=== PATIENT | female | born 1935 ===

== ENCOUNTER 2018-01-02 07:13 | Inpatient (IN) | payer OTHER, MEDICARE ==
[~2018-01-02] VITALS: Ht 167.6 cm; Wt 60.3 kg
[2018-01-02 08:02] LABS: ABSOLUTE BASOPHIL COUNT 0.1 /CUMM (0.0-0.2); ABSOLUTE EOSINOPHIL COUNT 0.1 /CUMM (0.0-0.7); ABSOLUTE GRANULOCYTE CT 18.5 /CUMM (1.4-6.5); ABSOLUTE LYMPH COUNT 0.7 /CUMM (1.2-3.4); BASOPHIL % 0.3 % (0.0-2.0); EOSINOPHIL % 0.3 % (0-5); GRANULOCYTE % 91.3 % (42.2-75.2); HEMATOCRIT 38.5 % (37-47); MEAN CORPUSCULAR HGB CONC 33.5 G/DL (33.0-37.0); MEAN CORPUSCULAR VOLUME 80.6 FL (81.0-99.0); MEAN PLATELET VOLUME 7.8 FL (7.4-10.4); PLATELET COUNT 616 /CUMM (130-400); RED BLOOD CELL CT 4.77 /CUMM (4.20-5.40); WHITE BLOOD CELL COUNT 20.3 /CUMM (4.8-10.8)
[2018-01-02 08:22] LABS: PT 30.8 SEC (9.4-12.5)
--- NOTE | 2018-01-02 09:10 | ED MVC/FALL/TRAUMA COMPLAINT ---
History of Present Illness General Chief Complaint: Fall Stated Complaint: BIBA FOR FALL THIS AM Source: patient, family, old records, EMS, Epic Exam Limitations: poor historian Vital Signs & Intake/Output Vital Signs & Intake/Output Vital Signs Date Time Temp Pulse Resp B/P B/P Pulse O2 O2 Flow FiO2 Mean Ox Delivery Rate 01/02 1506 97.9 88 18 134/86 97 Room Air Room Air 01/02 1113 109 18 96 Room Air 01/02 0822 96 Room Air 01/02 0720 109 18 179/91 97 Room Air Allergies Coded Allergies: No Known Allergies (01/02/18) Reconcile Medications Atorvastatin Calcium (Lipitor) 40 MG TABLET 1 TAB PO DAILY CHOLESTEROL ( Reported) Calcium Carbonate (Calcium) 500 MG CALCIUM (1,250 MG) TABLET 1 TAB PO BID SUPPLEMENT (Reported) Carvedilol 6.25 MG TABLET 1 TAB PO BID HEART/BP (Reported) Cholecalciferol (Vitamin D3) (Vitamin D) 1,000 UNIT TABLET 1 TAB PO DAILY SUPPLEMENT (Reported) Omeprazole 20 MG CAPSULE.DR 1 CAP PO DAILY GI (Reported) Prednisone 1 MG TABLET 9 MG PO DAILY STEROID (Reported) Sennosides/Docusate Sodium (Senna S Tablet) 8.6 MG-50 MG TABLET 1 TAB PO QHS GI (Reported) Sertraline HCl (Zoloft) 25 MG TABLET 1 TAB PO DAILY MENTAL HEALTH (Reported) Warfarin Sodium (Coumadin) 1 MG TABLET 1.5 TAB PO DAILY BLOOD THINNER ( Reported) Triage Note: PT BIBA FROM [facility] S/P UNWITNESSED FALL. PT REPORTS SHE FELL IN BATHROOM AND WAS ON FLOOR FOR UNKNOWN AMOUNT OF TIME. RIGHT UPPER EXT DEFORMITY NOTED WITH PAIN. ECCHYMOTIC AREAS NOTED TO LLE AND LUE, UNKNOWN MECHANISM. LEFT ORBIT ECCHYMOTIC AND SWOLLEN, PT STATES SHE DOES NOT KNOW HOW/WHEN INJURY OF ORBIT OCCURED, "IT MUST HAVE JUST HAPPENED". PT TAKES COUMADIN FOR AFIB. AOX2, DOES NOT RECALL DATE. Triage Nurses Notes Reviewed? yes Onset: Morning Duration: hour(s):, constant, continues in ED Timing: recent history Severity: moderate, severe Injuries/Fall Location: face, upper extremity, lower extremity Loss of Consciousness: no loss of consciousness Modifying Factors: Worsens With: movement, palpation. LMP (ages 10-50): post menopausal : No Patient currently breastfeeds: No HPI: Sometime during the night prior to admission patient lost her balance in the bathroom and fell forward into the toilet area. She does not recall losing consciousness but could not get up on her own. She complains of severe right arm pain limited range of motion. There has been no fever chills nausea vomiting diarrhea abdominal pain chest pain shortness breath headache dysuria rash bleeding. Patient walks with the assistance of a walker. Past History Travel History Traveled to [place] past 21 day No Medical History Any Pertinent Medical History? see below for history Neurological: CVA, AMS GIANT CELL ARTERITIS Cardiovascular: AFIB, CAD, hypertension, STEMI Surgical History Surgical History: non-contributory Psychosocial History Tobacco Use: Cognitive Impairment Family History Hx Contributory? No Review of Systems Review of Systems Constitutional: Reports: no symptoms. Eyes: Reports: no symptoms. Ears, Nose, Throat, Mouth: Reports: no symptoms. Respiratory: Reports: no symptoms. Cardiovascular: Reports: no symptoms. Gastrointestinal/Abdominal: Reports: no symptoms. Genitourinary: Reports: no symptoms. Musculoskeletal: Reports: see HPI, joint pain. Skin: Reports: no symptoms. Neurological/Psychological: Reports: no symptoms. All Other Systems: Reviewed and Negative Physical Exam Physical Exam General Appearance: well developed/nourished, alert, awake, anxious, moderate distress Head: evidence of injury, contusions, ecchymosis (left periorbital), swelling, tenderness Eyes: Bilateral: normal appearance, PERRL, EOMI, normal inspection. Ears, Nose, Throat, Mouth: hearing grossly normal, moist mucous membrane Neck: normal inspection, supple, full range of motion, normal alignment Respiratory: normal breath sounds, chest non-tender, no respiratory distress, quiet respiration, lungs clear Cardiovascular: normal peripheral pulses, tachycardia, irregularly irregular, norml femoral pulses equa Peripheral Pulses: 4+ carotid (R), 4+ carotid (L), 2+ radial (R), 2+ radial (L) Gastrointestinal: normal bowel sounds, soft, non-tender, no organomegaly Back: normal inspection Extremities: evidence of injury, bony-point tenderness, injury present, limited range of motion, pain with movement, tenderness, ecchymosis left elbow left knee and right shoulder abrasion right knee Neurologic/Psych: no motor/sensory deficits, awake, alert, normal mood/affect, 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 Yes No ASA d/t Pharmacological CI CVA/TIA Diagnosis No Sepsis Present: No Sepsis Focused Exam Completed? No Progress Differential Diagnosis: ext injury, ICH Plan of Care: Orders Procedure Date/time Status Regular Diet 01/02 D Active OXYGEN SETUP (GEN) 01/02 1606 Active Saline Lock 01/02 1606 Active Admit to inpatient 01/02 1606 Active Vital Signs 01/02 1606 Active Activity/Ambulation 01/02 1606 Active Code Status 01/02 1606 Active PT Evaluate & Treat 01/02 1118 Active Durable Medical Equipment 01/02 0851 Active URINALYSIS 01/02 0725 Complete TROPONIN LEVEL 01/02 0725 Complete PROTHROMBIN TIME 01/02 0725 Complete COMPREHENSIVE METABOLIC PANEL 01/02 0725 Complete CREATINE PHOSPHOKINASE 01/02 0725 Complete CBC WITHOUT DIFFERENTIAL 01/02 0725 Complete EKG 01/02 0725 Active Theraputic Activities 15 Min 01/02 UNK Complete Neuromuscular Re-Ed 15Min Ea 01/02 UNK Complete MOBILITY GOAL STATUS 01/02 UNK Complete MOBILITY CURRENT STATUS 01/02 UNK Complete PT EVAL MOD COMPLEX 30 MIN 01/02 UNK Complete Laboratory Tests 01/02/18 0913: Anion Gap 11, Estimated GFR > 60, BUN/Creatinine Ratio 26.0 H, Glucose 127 H, Calcium 9.1, Total Bilirubin 0.7, AST 19, ALT 36, Alkaline Phosphatase 91, Creatine Kinase 90, Troponin I 0.05, Total Protein 6.0 L, Albumin 3.4 L, Globulin 2.6, Albumin/Globulin Ratio 1.3 01/02/18 0755: PT 30.8 H, INR 2.80 H, CBC w Diff MAN DIFF ORDERED, RBC 4.77, MCV 80.6 L, MCH 27.0, MCHC 33.5, RDW 16.0 H, MPV 7.8, Gran % 91.3 H, Lymphocytes % 3.3 L, Monocytes % 4.8, Eosinophils % 0.3, Basophils % 0.3, Absolute Granulocytes 18.5 H, Segmented Neutrophils 83 H, Band Neutrophils 1, Absolute Lymphocytes 0.7 L, Lymphocytes 6 L, Monocytes 10 H, Absolute Monocytes 1.0 H, Absolute Eosinophils 0.1, Absolute Basophils 0.1, Platelet Estimate INCREASED, Normocytic RBCs VERIFIED, Normochromic RBCs VERIFIED 01/02/18 0751: Urinalysis LIGHT H, Urine Color YEL, Urine Clarity CLEAR, Urine pH 7.0, Ur Specific [place] 1.020, Urine Protein TRACE H, Urine Ketones NEG, Urine Nitrite NEG, Urine Bilirubin NEG, Urine Urobilinogen 0.2, Ur Leukocyte Esterase NEG, Ur Microscopic SEDIMENT EXAMINED, Urine RBC RARE, Urine WBC 3-5 H, Ur Epithelial Cells MOD H, Urine Bacteria MOD H, Urine Mucus FEW, Urine Hemoglobin NEG, Urine Glucose NEG 01/02/18 0732: Creatine Kinase Cancelled Diagnostic Imaging: Viewed by Me: Radiology Read, CT Scan. Discussed w/RAD: Radiology Read, CT Scan. Radiology Impression: 1. There are no acute bleeds or territorial infarcts. 2. There are no acute osseous findings. There is soft tissue swelling over the left malar and left supraorbital regions. 3. There is diffuse volume loss and there are chronic microvascular ischemic changes and lacunar infarcts. 4. There are severe degenerative changes of the temporomandibular joints. CXR Impression: Right humerus: A spiral fracture involving the proximal shaft of the right humerus. There is significant displacement and overriding at the fracture site. Displacement is posterior. The glenohumeral articulation is normal. The distance of overriding is approximately 9 cm. Left elbow: No evidence of fracture, dislocation, or joint effusion. CHEST: The heart is enlarged. There is moderate calcification and uncoiling of the thoracic aorta. Lungs are clear. There is no pneumothorax or obvious hemothorax. The visualized bony thorax is normal showing no fractures. Initial ED EKG: AFIB, no ST T wave changes Rhythm Strip: atrial fibrillation Departure Departure Disposition: STILL A PATIENT Condition: Fair Clinical Impression Primary Impression: Right humeral fracture Secondary Impressions: Atrial fibrillation, Fall due to stumbling, Leukocytosis Referrals: Patient Has No Primary Care Dr (PCP/Family) Departure Forms: Customer Survey General Discharge Information Admission Note Spoke With: Krissy Smith MD Documentation of Exam: Documentation of any treatments & extenuating circumstances including Concerns Regarding Discharge (functional status, medication knowledge or non-compliance, living conditions, etc.) that warrant an admission rather than observation: Physical therapy analgesia medication adjustment serial lab exam continuing care discharge planning ensure safety. Procedures Splinting Location: right humerus Manual Alignment Performed: No Hand-Made Type: orthoglass Splint: sugar-tong Splint Applied By: splint applied by me Pre-Proc Neuro Vasc Exam: normal Post-Proc Neuro Vasc Exam: normal
--- NOTE | 2018-01-02 09:21 | CT SCAN REPORT ---
EXAMINATION: CT HEAD WITHOUT CONTRAST CT FACIAL BONES WITHOUT CONTRAST CLINICAL INFORMATION: Fall, left periorbital ecchymosis. Assess for fracture or intracranial hemorrhage. COMPARISON: None. TECHNIQUE: Multidetector CT imaging of the head and facial bones was performed without the use of intravenous contrast. Coronal and sagittal reformatted images were generated at the technologist workstation. DLP: 1484.48 mGy-cm. FINDINGS: CT head: There is no evidence of acute intracranial hemorrhage or territorial infarction. No abnormal mass-effect or midline shift is seen. Nevarez to white matter differentiation is well preserved. No extra-axial fluid collections are identified. The ventricles and sulci are commensurately prominent consistent with moderate diffuse volume loss. There are relatively extensive areas of low attenuation in the periventricular and subcortical white matter, consistent with chronic microvascular ischemic changes. There appear to be small lacunar infarcts in the cerebellar hemispheres. There are atheromatous calcifications of the cavernous internal carotid arteries bilaterally. There have been bilateral lens extractions. There is soft tissue swelling over the left malar and left periorbital regions. There are severe degenerative changes of the temporomandibular joints bilaterally. There are no acute osseous findings. The mastoid air cells and visualized portions of the paranasal sinuses are well-aerated. CT facial bones: There is no acute maxillofacial fracture. The mandible is intact. There are severe degenerative changes of the bilateral temporomandibular joints. The pterygoid plates, zygomatic arches and lamina papyracea are intact. The bony orbital rims are intact. The nasal bones are intact. There is moderate soft tissue swelling over the left malar and left supraorbital regions. There is mild mucoperiosteal thickening in the bilateral maxillary sinuses. No air-fluid levels are seen. There is rightward deviation of the nasal septum with a bony nasal septal spur on the right. The ostiomeatal complexes are clear. The ethmoid roofs are symmetric. The carotid canals are normally covered by bone. The patient is edentulous in the maxilla. There are periapical lucencies around the roots of multiple teeth in the anterior mandible. The mastoid air cells and visualized middle ear cavities are well-aerated. There have been bilateral lens extractions. The intraorbital contents are otherwise unremarkable. IMPRESSION: 1. There are no acute bleeds or territorial infarcts. 2. There are no acute osseous findings. There is soft tissue swelling over the left malar and left supraorbital regions. 3. There is diffuse volume loss and there are chronic microvascular ischemic changes and lacunar infarcts. 4. There are severe degenerative changes of the temporomandibular joints.
--- NOTE | 2018-01-02 09:22 | RADIOLOGY REPORT ---
EXAMINATION: XR KNEE, RIGHT CLINICAL INFORMATION: Right knee pain COMPARISON: None TECHNIQUE: Four views of the right knee. FINDINGS: Normal alignment. No fracture. No joint effusion. Mild medial compartment osteoarthritis with marginal osteophytes and slight joint space narrowing. Prominent vascular calcifications. IMPRESSION: No fracture. Mild medial compartment osteoarthritis.
--- NOTE | 2018-01-02 09:28 | RADIOLOGY REPORT ---
EXAMINATION: XRY-CHEST XRAY, SINGLE VIEW, XRY-HUMERUS, RIGHT, XRY-ELBOW 3 OR MORE VIEWS, L CLINICAL INFORMATION: 82-year-old female experiencing trauma. COMPARISON: None. TECHNIQUE: 3 views of the right humerus, 4 views of the left elbow, and AP supine view of the chest. FINDINGS: Right humerus: A spiral fracture involving the proximal shaft of the right humerus. There is significant displacement and overriding at the fracture site. Displacement is posterior. The glenohumeral articulation is normal. The distance of overriding is approximately 9 cm. Left elbow: No evidence of fracture, dislocation, or joint effusion. CHEST: The heart is enlarged. There is moderate calcification and uncoiling of the thoracic aorta. Lungs are clear. There is no pneumothorax or obvious hemothorax. The visualized bony thorax is normal showing no fractures. IMPRESSION: Displaced overriding fracture of the right humerus.
--- NOTE | 2018-01-02 11:26 | Cons- Orthopedic ---
General Information and HPI Consulting Request Date of Consult: 01/02/18 Requested By: Dr. Jennings History of Present Illness: 82 yr old female who had syncopal episode. C/O right shoulder pain. x-rays were taken in ER which show a proximal humeral shaft fracture. She was placed into a co-aptation splint and sling per Dr griffiths recommendation to the ER physician. The ER physician states that right upper extremity in N/V intact with good radial pulse and sensation to light touch. She will be admitted to medicine for syncope. Will remain in splint and sling and f/u in our office in 1 week for repeat films of proximal humerus. NWB right upper extremity. Discussed with Dr Lugo and Dr Lugo discussed this with Dr Jennings. Allergies/Medications Allergies: Coded Allergies: No Known Allergies (01/02/18) Past History Medical History Neurological: CVA, AMS GIANT CELL ARTERITIS Cardiovascular: AFIB, CAD, hypertension, STEMI Surgical History Pertinent Surgical History: non-contributory Review of Systems Review of Systems: see chart Exam & Diagnostic Data Vital Signs and I&O Vital Signs Date Time Temp Pulse Resp B/P B/P Pulse O2 O2 Flow FiO2 Mean Ox Delivery Rate 01/02 1113 109 18 96 Room Air 01/02 0822 96 Room Air 01/02 0720 109 18 179/91 97 Room Air Intake & Output 01/02 1600 01/02 0800 01/02 0000 01/01 1600 01/01 0800 01/01 0000 Intake Total Output Total Balance Patient 125 lb Weight Weight Reported by Patient Measurement Method Assessment/Plan Assessment/Plan Right proximal humeral shaft fracture - F/U 1 week in our office for repeat films of right proximal humerus [phone] - sling and co-aptation splint of right upper extremity - no motion of right upper extremity - NWB right upper extremity - ice to right shoulder area and pain meds for pain control - Treatment plan discussed and agreed by Dr Lugo Consult Acknowledgment - Thank you for your consult request.
[2018-01-02] MEDS ORDERED: LIPITOR40 M1 PO (16:06)
[2018-01-02] MEDS ORDERED: OMEPRAZOLE20 M2 PO (16:07)
[2018-01-02] MEDS ORDERED: SENNA S TABLET1 EACH PO (16:07)
[2018-01-02] MEDS ORDERED: CARVEDILOL6.25 M1 PO (16:07)
[2018-01-02] MEDS ORDERED: COUMADIN1 M1 PO (16:08)
[2018-01-02] MEDS ORDERED: ZOLOFT25 M1 PO (16:08)
[2018-01-02] MEDS ORDERED: PREDNISONE1 MG PO (16:09)
[2018-01-02] MEDS ORDERED: CALCIUM500 M1 PO (16:10)
[2018-01-02] MEDS ORDERED: VITAMIN D1000 UNIT PO (16:10)
--- NOTE | 2018-01-02 16:17 | History & Physical ---
Rohit LEE,Jonnyyanna 01/02/18 1617: General Information and [facility] MD Statement: I have seen and personally examined CORINA SANCHEZ and documented this H&P. The patient is a 82 year old F who presented with a patient stated chief complaint of [fall and syncope]. 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 Pt was subsequently d/c from [facility] to [facility] and then to [facility] for rehab services. Per notes she continues to have residual deficits and transient episodes of confusion and slurring of speech since CVA. She was brought to for CC of unwitnessed fall. Unfortunately pt is a poor historian and while sometimes provides plausible answers is not entirely reliable (did not know where she lived). Per her, she was trying to go to bathroom last night and had socks on and slipped and fell. She hit the commode and was down for several hours. But upon speaking to daughter, Renetta, pt was down for about 45 min before any of nursing staff found her down. Pt denies any LOC or head strike but has contusions on her face suggesting otherwise. Pt denies SOB, CP, lowe, nausea, vomiting, vision change, dizziness, change in appetite, difficulty urinating or diarrhea. She complains of r. arm and some soreness in her legs. Renetta is MPOA and she states that her mother is at her baseline mental status. I attempted to call [facility] but nobody was available to answer. Allergies/Medications Allergies: Coded Allergies: No Known Allergies (01/02/18) Home Med list Atorvastatin Calcium (Lipitor) 40 MG TABLET 1 TAB PO DAILY CHOLESTEROL ( Reported) Calcium Carbonate (Calcium) 500 MG CALCIUM (1,250 MG) TABLET 1 TAB PO BID SUPPLEMENT (Reported) Carvedilol 6.25 MG TABLET 1 TAB PO BID HEART/BP (Reported) Cholecalciferol (Vitamin D3) (Vitamin D) 1,000 UNIT TABLET 1 TAB PO DAILY SUPPLEMENT (Reported) Omeprazole 20 MG CAPSULE. 1 CAP PO DAILY GI (Reported) Prednisone 1 MG TABLET 9 MG PO DAILY STEROID (Reported) Sennosides/Docusate Sodium (Senna S Tablet) 8.6 MG-50 MG TABLET 1 TAB PO QHS GI (Reported) Sertraline HCl (Zoloft) 25 MG TABLET 1 TAB PO DAILY MENTAL HEALTH (Reported) Warfarin Sodium (Coumadin) 1 MG TABLET 1.5 TAB PO DAILY BLOOD THINNER ( Reported) Past History Travel History Traveled to [place] past 21 day No Medical History Neurological: CVA, AMS GIANT CELL ARTERITIS Cardiovascular: AFIB, CAD, hypertension, STEMI Surgical History Surgical History: non-contributory Review of Systems Review of Systems Constitutional: Reports: see HPI. Exam & Diagnostic Data Last 24 Hrs of Vital Signs/I&O Vital Signs Date Time Temp Pulse Resp B/P B/P Pulse O2 O2 Flow FiO2 Mean Ox Delivery Rate 01/02 1506 97.9 88 18 134/86 97 Room Air Room Air 01/02 1113 109 18 96 Room Air 01/02 0822 96 Room Air 01/02 0720 109 18 179/91 97 Room Air Intake & Output 01/02 1600 01/02 0800 01/02 0000 Intake Total 120 Output Total 200 Balance -80 Intake, Oral 120 Output, Urine 200 Patient 56.699 kg Weight Weight Reported by Patient Measurement Method Physical Exam General Appearance Alert, No Acute Distress Skin has contusion around l. eye. no pain to palpation. L. lateral thigh has a large bruise. R. arm in cast cannot assess HEENT bruise around l. eye Neck Supple, No LAD Cardiovascular irreg irregular Lungs Normal Air Movement Abdomen Soft, No Tenderness Neurological Normal Speech, Sensation Intact, Cranial Nerves 3-12 NL Extremities r. arm in cast. it is warm and well perfused. good cap refill. pulses in tact but irregular. pt has sensation in tact and is able to move all digits wtihout pain. the arm is in a cast and sling so unable to assess beyond wrist. Last 24 Hrs of Labs/Ashish: Laboratory Tests 01/02/18 0913: Anion Gap 11, Estimated GFR > 60, BUN/Creatinine Ratio 26.0 H, Glucose 127 H, Calcium 9.1, Total Bilirubin 0.7, AST 19, ALT 36, Alkaline Phosphatase 91, Creatine Kinase 90, Troponin I 0.05, Total Protein 6.0 L, Albumin 3.4 L, Globulin 2.6, Albumin/Globulin Ratio 1.3 01/02/18 0755: PT 30.8 H, INR 2.80 H, CBC w Diff MAN DIFF ORDERED, RBC 4.77, MCV 80.6 L, MCH 27.0, MCHC 33.5, RDW 16.0 H, MPV 7.8, Gran % 91.3 H, Lymphocytes % 3.3 L, Monocytes % 4.8, Eosinophils % 0.3, Basophils % 0.3, Absolute Granulocytes 18.5 H, Segmented Neutrophils 83 H, Band Neutrophils 1, Absolute Lymphocytes 0.7 L, Lymphocytes 6 L, Monocytes 10 H, Absolute Monocytes 1.0 H, Absolute Eosinophils 0.1, Absolute Basophils 0.1, Platelet Estimate INCREASED, Normocytic RBCs VERIFIED, Normochromic RBCs VERIFIED 01/02/18 0751: Urinalysis LIGHT H, Urine Color YEL, Urine Clarity CLEAR, Urine pH 7.0, Ur Specific [place] 1.020, Urine Protein TRACE H, Urine Ketones NEG, Urine Nitrite NEG, Urine Bilirubin NEG, Urine Urobilinogen 0.2, Ur Leukocyte Esterase NEG, Ur Microscopic SEDIMENT EXAMINED, Urine RBC RARE, Urine WBC 3-5 H, Ur Epithelial Cells MOD H, Urine Bacteria MOD H, Urine Mucus FEW, Urine Hemoglobin NEG, Urine Glucose NEG 01/02/18 0732: Creatine Kinase Cancelled Assessment/Plan Assessment: ASSESSMENT: This is a 82 yo female with very complex medical history including CAD S/P mid LAD PCI on 02/2017, chronic afib on coumadin, Giant cell arteritis ( temporal artery biopsy was negative but ESR elevated, and empirically treated due to improvement on steroids) on chronic steroid taper with 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 vertebral artery dissection who comes in for CC of unwitnessed mechanical fall. In ED pt found to have over riding fracture of r. humerus which was placed in splint and sling. CT head did not show evidence of acute bleed. PLAN: 1. fall w/ R. humeral fracture w/ head strike: Pt assessed by ortho PA and placed in splint and sling. CT head shows no evidence of bleed. * Plan is to follow up outpatient in one week with orthopedics for follow up * pain mgmt * pt * ot * neuro check q 2 2. PAF: Per [facility] notes it was unsure if her CVA was secondary to stopping coumadin or due to GCA. Today INR 2.8. If she has bleed will reverse appropriately. No vit K administered at this time. * Check INR * Dose tomorrow 3. Leukocytosis: WBC 20.3.Pt afebrile with no evidence of infection. Could also be due to steroids. Likely reactive but will do work up. * UA * UCX * BCX 4. Thrombocytosis: Plt 616. Don't have any comparison. Will con't monitor.? acute phase reactant * Con't monitor 5. HX GCA/ Bilat cerebellar CVA and vertebral dissection: * Con't Steroid taper per [facility] rheumatology 6. CAD * Atorvastatin * Carvedilol 7. Depression * Continue Zoloft 25mg qDaily 8. Con't other meds * Vit D 1000u qd * Calcium 500mg po BID * PPI DNR Reg diet Coumadin ppx As Ranked By This Provider Problem List: 1. Right humeral fracture 2. Leukocytosis 3. Atrial fibrillation Core Measures/Misc (06/02) Acute Coronary Syndrome ACS Diagnosis: No Congestive Heart Failure Congestive Heart Failure Diagnosis No Cerebrovascular Accident CVA/TIA Diagnosis: No VTE (View Protocol) VTE Risk Factors Acute Medical Illness No Mechanical VTE Prophylaxis d/t N/A MechProphylax Ordered No VTE Pharm Prophylaxis d/t NA PharmProphylax ordered Sepsis (View protocol) Sepsis Present: No KiaraaSmeer walsh 01/02/18 1717: Attending MD Review Statement Attending Statement Attending MD Statement: examined this patient, discuss w/resident/PA/MEASUREMENT ANALYST, agreed w/resident/PA/MEASUREMENT ANALYST, discussed with family, reviewed EMR data (avail), discussed with nursing, discussed with case mgmt, reviewed images, amended to note Attending Assessment/Plan: Patient admitted to telemetry for fall with syncope. Patient has suffered fracture of right humerus. Orthopedics consutled in ER and recommend conservative management. Head CT negative for intracranial bleed. Patient on coumaidn with therpautic INR. Cardiology consult. Serial cardiac enzymes. Carotid USG. Frequent neurochecks and fall precautions. PT consult. Confirm home meds. gi/dvt prophyalxis.
[2018-01-02 22:23] VITALS: BP 144/98
[2018-01-03 06:33] VITALS: BP 152/78
[2018-01-03 07:47] LABS: ABSOLUTE BASOPHIL COUNT 0 /CUMM (0.0-0.2); ABSOLUTE EOSINOPHIL COUNT 0 /CUMM (0.0-0.7); BASOPHIL % 0.2 % (0.0-2.0); WHITE BLOOD CELL COUNT 11.4 /CUMM (4.8-10.8)
[2018-01-03 08:14] LABS: ABSOLUTE GRANULOCYTE CT 9.7 /CUMM (1.4-6.5); ABSOLUTE LYMPH COUNT 0.6 /CUMM (1.2-3.4); EOSINOPHIL % 0.2 % (0-5); MEAN CORPUSCULAR HGB 26.8 PG (27.0-31.0); MEAN CORPUSCULAR VOLUME 81.3 FL (81.0-99.0); MEAN PLATELET VOLUME 7.8 FL (7.4-10.4); PLATELET COUNT 453 /CUMM (130-400); PT 38.5 SEC (9.4-12.5); RBC DISTRIBUTION WIDTH 16.2 % (11.5-14.5); RED BLOOD CELL CT 4.08 /CUMM (4.20-5.40)
[2018-01-03 08:18] LABS: HEMATOCRIT 33.2 % (37-47)
--- NOTE | 2018-01-03 08:33 | PN- Student ---
Subjective Subjective: Bridger is an 82 year old female with history of HTN, STEMI, A.fib (on coumadin), CAD S/P mid LAD PCI February 2017, CVA, giant cell arteritis, vertebral dissection who presented to the ED following an unwittnessed fall at her assisted living facility ([facility]) after which she stayed on the floor for an unknown period of time before an aid found her and called an ambulence. The patient recalls rushing to the bathroom and slipping due to her socks, and falling near the toilet. She remembers falling on her arm but does not recall hitting her head despite a left orbital bruise, though she denies loss of consciousness. She experienced unfocused vision following the fall. She admits to feeling nauseous after the fall, but denies vomiting. Pt denies feeling any pain while waiting for the aid. She does not use a cane. Today, patient is feeling "shaken up" from her fall, but otherwise feels well. She has pain (4/10) on exertion of her right arm. Her unfocused vision symptom has been resolved. She denies headache, but there is TTP around her left orbit. Pt denies chest pain abdominal pain, and pain with urination. Shes states that she feels emotionally well today. Social history: patient previously lived with her in [place], but moved to [facility] for assisted living since he . Has "mixed feelings" about the assisted living home. Her daughter, Renetta, is her MPOA. Objective Objective: Vitals 6:33am T:98 P:108 RR:18 BP:152/78 (systolic fluctuated between 118 -152 since ED arrival) PO2:95% BP 110/68 @ 4:12pm Labs show leukopenia and thrombocytopenia, increased PT & INR (3.94) per Telemetry, pt was in A.fib throughout night with HR 95-126. no events Physical Exam (limited by broken humerus in sling): General appearance: awake and alert, in some discomfort HEENT: PERRLA, EOMI MSK: TTP left orbit Skin: echymoses surrouning left eye Imaging: Head CT: no infarction or hemorrhage, soft tissue swelling over left malar and left supraorbital regions, diffuse volume loss and chronic microvascular ischemic changes and lacunar infarcts Knee XR: no fracture. mild medial compartment osteoarthritis Chest XR: spiral fracture of proximal shaft L. humerus with posterior displacement. enlarged heart. moderate calcification and uncoiling of thoracic aorta. Results Results: Laboratory Tests 01/03/18 0650: Anion Gap 11, Estimated GFR > 60, BUN/Creatinine Ratio 25.0, PT 38.5 H, INR 3.49 H, CBC w Diff Pending, WBC Pending, RBC Pending, Hgb Pending, Hct Pending, MCV Pending, MCH Pending, MCHC Pending, RDW Pending, Plt Count Pending, MPV Pending, Gran % Pending, Lymphocytes % Pending, Monocytes % Pending, Eosinophils % Pending, Basophils % Pending, Absolute Granulocytes Pending, Absolute Lymphocytes Pending, Absolute Monocytes Pending, Absolute Eosinophils Pending, Absolute Basophils Pending 01/02/18 0913: Anion Gap 11, Estimated GFR > 60, BUN/Creatinine Ratio 26.0 H, Glucose 127 H, Calcium 9.1, Total Bilirubin 0.7, AST 19, ALT 36, Alkaline Phosphatase 91, Creatine Kinase 90, Troponin I 0.05, Total Protein 6.0 L, Albumin 3.4 L, Globulin 2.6, Albumin/Globulin Ratio 1.3 01/02/18 0755: PT 30.8 H, INR 2.80 H, CBC w Diff MAN DIFF ORDERED, RBC 4.77, MCV 80.6 L, MCH 27.0, MCHC 33.5, RDW 16.0 H, MPV 7.8, Gran % 91.3 H, Lymphocytes % 3.3 L, Monocytes % 4.8, Eosinophils % 0.3, Basophils % 0.3, Absolute Granulocytes 18.5 H, Segmented Neutrophils 83 H, Band Neutrophils 1, Absolute Lymphocytes 0.7 L, Lymphocytes 6 L, Monocytes 10 H, Absolute Monocytes 1.0 H, Absolute Eosinophils 0.1, Absolute Basophils 0.1, Platelet Estimate INCREASED, Normocytic RBCs VERIFIED, Normochromic RBCs VERIFIED 01/02/18 0751: Urinalysis LIGHT H, Urine Color YEL, Urine Clarity CLEAR, Urine pH 7.0, Ur Specific [place] 1.020, Urine Protein TRACE H, Urine Ketones NEG, Urine Nitrite NEG, Urine Bilirubin NEG, Urine Urobilinogen 0.2, Ur Leukocyte Esterase NEG, Ur Microscopic SEDIMENT EXAMINED, Urine RBC RARE, Urine WBC 3-5 H, Ur Epithelial Cells MOD H, Urine Bacteria MOD H, Urine Mucus FEW, Urine Hemoglobin NEG, Urine Glucose NEG 01/02/18 0732: Creatine Kinase Cancelled Microbiology 01/02 1915 BLOOD: Blood Culture - RECD 01/02 1907 BLOOD: Blood Culture - RECD Assessment/Plan Assessment: 82 year old female pt on coumadin for a. fib and CVA history presenting with an unwitnessed fall at her assisted living facility resulting in a spiral fracture and posterior dislocation of the right humerus. Cardiology consult pending to determine whether or not to continue coumadin in light of fall. Plan: 1. Humerus fracture -arm in sling -ortho follow-up 2. Pt with a recent fall and fracture taking coumadin for A.fib and CVA history -CT showed no hemorrhage -follow PT and INR -consult cardiology for recommendation on continuation of coumadin
--- NOTE | 2018-01-03 08:38 | PN- Housestaff ---
Joyce Simms MD 01/03/18 0838: Subjective Follow-up For: Humeral fracture Head strike PAF Thrombocytosis and leukocytosis History of giant cell arteritis Complaints: pain scale (0-10) Tele-Events Since Last Visit: A. fib 95 to 130 Subjective: Patient has right arm pain as well as pain in her head where she struck her face. She states that she fell months ago, somewhat confused. She denies any chest pain, palpitations, headache, shortness of breath. Review of Systems Constitutional: Reports: no symptoms. Cardiovascular: Reports: no symptoms. Respiratory: Reports: no symptoms. Musculoskeletal: Reports: joint pain, muscle pain. Neurological/Psychological: Reports: confusion. Hematologic/Endocrine: Reports: bruising. Objective Last 24 Hrs of Vital Signs/I&O Vital Signs Date Time Temp Pulse Resp B/P B/P Pulse O2 O2 Flow FiO2 Mean Ox Delivery Rate 01/03 1612 110/68 01/03 1438 98.1 98 20 92/54 94 Room Air 01/03 1114 98.0 108 18 152/78 01/03 0915 108 152/78 01/03 0633 98.0 108 18 152/78 95 Room Air 01/02 2326 120 142/98 01/02 2223 98.4 128 20 144/98 95 01/02 2016 97.5 110 18 126/74 97 Room Air Room Air 01/02 1927 Room Air Room Air Intake & Output 01/03 1600 01/03 0800 01/03 0000 Intake Total 480 120 120 Output Total 100 Balance 480 20 120 Intake, Oral 480 120 120 Output, Urine 100 Patient 132 lb Weight Weight Bed scale Measurement Method Physical Exam General Appearance: Alert, Cooperative, No Acute Distress Skin: No Rashes, No Breakdown, No Significant Lesion Skin Temp/Moisture Exam: Warm/Dry Sepsis Skin Exam (color): Normal for Ethnicity HEENT: PERRLA, EOMI, Mucous Membr. moist/pink, left forehead and eye bruise Neck: Supple, No JVD Cardiovascular: Normal S1, Normal S2, No Murmurs Lungs: Clear to Auscultation, Normal Air Movement Abdomen: Normal Bowel Sounds, Soft, No Tenderness Neurological: Normal Speech, Normal Tone, Sensation Intact, Cranial Nerves 3-12 NL, Reflexes 2+ Extremities: No Clubbing, No Cyanosis, No Edema Vascular: Normal Pulses, Pulses Symmetrical Current Medications: Current Medications Sig/Alverto Start time Last Medication Dose Route Stop Time Status Admin Acetaminophen 650 MG Q6P PRN 01/02 1645 AC PO Atorvastatin Calcium 40 MG 1700 01/03 1700 AC 01/03 PO 1722 Calcium Carbonate 1,250 MG BID 01/02 2100 AC 01/03 PO 0915 Carvedilol 12.5 MG BID 01/03 2100 AC PO Carvedilol 6.25 MG ONCE ONE 01/03 1000 DC 01/03 PO 01/03 1001 1114 Carvedilol 6.25 MG BID 01/02 2100 DC 01/03 PO 0915 Cholecalciferol 1,000 IU DAILY 01/03 0900 AC 01/03 PO 0915 Ibuprofen 600 MG Q6P PRN 01/02 164 AC PO Omeprazole 20 MG DAILY 01/03 0900 AC 01/03 PO 0915 Oxycodone/ 2 TAB Q6P PRN 01/02 1645 AC 01/03 Acetaminophen PO 1036 Prednisone 9 MG DAILY 01/02 1818 AC 01/03 PO 1035 Senna/Docusate Sodium 1 TAB DAILY PRN 01/02 1830 AC PO Sertraline HCl 25 MG DAILY 01/03 0900 AC 01/03 PO 0915 Last 24 Hrs of Lab/Ashish Results Last 24 Hrs of Labs/Mics: Laboratory Tests 01/03/18 1605: CBC w Diff NO MAN DIFF REQ, RBC 3.94 L, MCV 81.6, MCH 26.6 L, MCHC 32.6 L, RDW 16.7 H, MPV 8.0, Gran % 87.4 H, Lymphocytes % 4.7 L, Monocytes % 7.4, Eosinophils % 0.5, Basophils % 0, Absolute Granulocytes 10.8 H, Absolute Lymphocytes 0.6 L, Absolute Monocytes 0.9 H, Absolute Eosinophils 0.1, Absolute Basophils 0 01/03/18 0650: Anion Gap 11, Estimated GFR > 60, BUN/Creatinine Ratio 25.0, PT 38.5 H, INR 3.49 H, CBC w Diff NO MAN DIFF REQ, RBC 4.08 L, MCV 81.3, MCH 26.8 L, MCHC 33.0, RDW 16.2 H, MPV 7.8, Gran % 85.4 H, Lymphocytes % 5.2 L, Monocytes % 9.0, Eosinophils % 0.2, Basophils % 0.2, Absolute Granulocytes 9.7 H, Absolute Lymphocytes 0.6 L, Absolute Monocytes 1.0 H, Absolute Eosinophils 0, Absolute Basophils 0 Microbiology 01/02 1915 BLOOD: Blood Culture - RES Assessment/Plan Assessment: This is a 82 yo female with very complex medical history including CAD S/P mid LAD PCI on 02/2017, chronic afib on coumadin, Giant cell arteritis (temporal artery biopsy was negative but ESR elevated, and empirically treated due to improvement on steroids) on chronic steroid taper with 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 vertebral artery dissection who comes in for CC of unwitnessed mechanical fall. In ED pt found to have over riding fracture of r. humerus which was placed in splint and sling. CT head did not show evidence of acute bleed. Overnight patient had stable vitals. Her WBC count was 11.4 and INR 3.49. Her Coumadin is held. PLAN: 1. fall w/ R. humeral fracture w/ head strike: Pt assessed by ortho PA and placed in splint and sling. CT head shows no evidence of bleed. A she will follow-up with orthopedics in 1 week for repeat films. She will use a sling and splint. She is not to move right upper extremity and will be nonweightbearing. Ice to right shoulder area and pain meds for pain control. neuro check q 2 2. PAF: Per [facility] notes it was unsure if her CVA was secondary to stopping coumadin or due to GCA. Today INR 3.49. If she has bleed will reverse appropriately. No vit K administered at this time. Hold Coumadin Check INR Dose tomorrow * Consult with cardiology regarding placement on blood thinners. * Patient had slightly high rates overnight 95-130 so we will increase her Coreg to 12.5 twice a day. 3. Leukocytosis: WBC has fallen to 11.3 today .Pt afebrile with no evidence of infection. Could also be due to steroids. Likely reactive but will do work up. UA shows moderate bacteria, negative nitrates, negative leukocyte esterase, no symptoms. Follow off antibiotics. UCX BCX 4. Thrombocytosis: Don't have any comparison. Will con't monitor.? acute phase reactant Con't monitor 5. HX GCA/ Bilat cerebellar CVA and vertebral dissection: Con't Steroid taper per [facility] rheumatology 6. CAD Atorvastatin Carvedilol 7. Depression Continue Zoloft 25mg qDaily 8. Con't other meds Vit D 1000u qd Calcium 500mg po BID PPI DNR Reg diet Coumadin ppx Problem List: 1. Atrial fibrillation 2. Fall due to stumbling 3. Right humeral fracture 4. Leukocytosis Pain Ratin Pain Location: Area of Right humerus Pain Goal: Pain 4 or less Pain Plan: Pain pathway Tomorrow's Labs & Rationales: CBC and BEP Sameer Craig 01/03/18 1146: Attending MD Review Statement Attending Statement Attending MD Statement: examined this patient, discuss w/resident/PA/YARD ENGINEER, agreed w/resident/PA/YARD ENGINEER, discussed with family, reviewed EMR data (avail), discussed with nursing, discussed with case mgmt, reviewed images, amended to note Attending Assessment/Plan: Patient admitted to telemetry for fall with syncope. Patient has suffered fracture of right humerus. Orthopedics consutled in ER and recommend conservative management. Head CT negative for intracranial bleed. Patient had episode of CVA off coumadin in past. Overnight events no new complaints. Pain better. Sling +. AAOx3. HR 110-140s Patient on coumadin with therpautic INR. Cardiology consult regarding anticougaltion. Serial cardiac enzymes negative for DE. Increase carvedilol for rate control. Pain control. Frequent neurochecks and fall precautions. PT consult. Discharge planning to [facility]. O/p F/u with Orthopeidcs in 2 weeks.
[2018-01-03 08:43] LABS: GRANULOCYTE % 85.4 % (42.2-75.2)
--- NOTE | 2018-01-03 13:48 | Discharge Summary ---
Visit Information Visit Dates Admission Date: 01/02/18 Discharge Date: 01/05/2018 Hospital Course Course Attending Physician: Kiara LEE,Sameer Primary Care Physician: Patient Has No Primary Care Dr Hospital Course: This is a 82 yo female with PMH of CAD S/P mid LAD PCI on 02/2017, chronic afib on coumadin, Giant cell arteritis (temporal artery biopsy was negative but ESR elevated, and empirically treated as she was improving on steroids) subsequently complicated by bilat cerebellar CVA and l. vertebral artery dissection all of which occured between Aug 2017 and Sep 2017. Pt was subsequently d/c from [facility] to [facility] and then to [facility] for rehab services. Per notes she continues to have residual deficits and transient episodes of confusion and slurring of speech since CVA. She was brought to for CC of unwitnessed fall. Unfortunately pt is a poor historian and while sometimes provides plausible answers is not entirely reliable (did not know where she lived). Per her, she was trying to go to bathroom last night and had socks on and slipped and fell. She hit the commode and was down for several hours. But upon speaking to daughter, Renetta, pt was down for about 45 min before any of nursing staff found her down. Pt denies any LOC or head strike but has contusions on her face suggesting otherwise. Pt denies SOB, CP, lowe, nausea, vomiting, vision change, dizziness, change in appetite, difficulty urinating or diarrhea. She complains of r. arm and some soreness in her legs. Renetta is MPOA and she states that her mother is at her baseline mental status. I attempted to call [employer] but nobody was available to answer. Initial ED Vitals and Physical Exam were the following: Physical Exam General Appearance Alert, No Acute Distress Skin has contusion around l. eye. no pain to palpation. L. lateral thigh has a large bruise. R. arm in cast cannot assess HEENT bruise around l. eye Neck Supple, No LAD Cardiovascular irreg irregular Lungs Normal Air Movement Abdomen Soft, No Tenderness Neurological Normal Speech, Sensation Intact, Cranial Nerves 3-12 NL Extremities r. arm in cast. it is warm and well perfused. good cap refill. pulses in tact but irregular. pt has sensation in tact and is able to move all digits wtihout pain. the arm is in a cast and sling so unable to assess beyond wrist. Last 24 Hrs of Labs/Ashish: Laboratory Tests 01/02/18 0913: Anion Gap 11, Estimated GFR > 60, BUN/Creatinine Ratio 26.0 H, Glucose 127 H, Calcium 9.1, Total Bilirubin 0.7, AST 19, ALT 36, Alkaline Phosphatase 91, Creatine Kinase 90, Troponin I 0.05, Total Protein 6.0 L, Albumin 3.4 L, Globulin 2.6, Albumin/Globulin Ratio 1.3 01/02/18 0755: PT 30.8 H, INR 2.80 H, CBC w Diff MAN DIFF ORDERED, RBC 4.77, MCV 80.6 L, MCH 27.0, MCHC 33.5, RDW 16.0 H, MPV 7.8, Gran % 91.3 H, Lymphocytes % 3.3 L, Monocytes % 4.8, Eosinophils % 0.3, Basophils % 0.3, Absolute Granulocytes 18.5 H, Segmented Neutrophils 83 H, Band Neutrophils 1, Absolute Lymphocytes 0.7 L, Lymphocytes 6 L, Monocytes 10 H, Absolute Monocytes 1.0 H, Absolute Eosinophils 0.1, Absolute Basophils 0.1, Platelet Estimate INCREASED, Normocytic RBCs VERIFIED, Normochromic RBCs VERIFIED 01/02/18 0751: Urinalysis LIGHT H, Urine Color YEL, Urine Clarity CLEAR, Urine pH 7.0, Ur Specific [place] 1.020, Urine Protein TRACE H, Urine Ketones NEG, Urine Nitrite NEG, Urine Bilirubin NEG, Urine Urobilinogen 0.2, Ur Leukocyte Esterase NEG, Ur Microscopic SEDIMENT EXAMINED, Urine RBC RARE, Urine WBC 3-5 H, Ur Epithelial Cells MOD H, Urine Bacteria MOD H, Urine Mucus FEW, Urine Hemoglobin NEG, Urine Glucose NEG In ED pt found to have over riding fracture of r. humerus which was placed in splint and sling. CT head did not show evidence of acute bleed. PLAN: 1. fall w/ R. humeral fracture w/ head strike: Pt assessed by ortho PA and placed in splint and sling. CT head shows no evidence of bleed. * Plan is to follow up outpatient in one week with orthopedics for follow up * pain mgmt * pt * ot * neuro check q 2 2. PAF: Per [facility] notes it was unsure if her CVA was secondary to stopping coumadin or due to GCA. * Coumadin discontinued by cardiology for risk of bleed. please follow up with your regular yarn cleaner for reevaluation 3. Thrombocytosis: on admission Plt 616. * Con't monitor 4. HX GCA/ Bilat cerebellar CVA and vertebral dissection: * Con't Steroid taper per [facility] rheumatology * As of now pt is on 9 mg of steroids daily. Plan is to taper slowly off steroids. * FOLLOW UP WITH YOUR [employer] BILLET INSPECTOR FOR DETAILS ON THE TAPER WE DO NOT HAVE ACCESS TO THOSE RECORDS HERE. 5. CAD * Atorvastatin * Carvedilol 6. Depression * Continue Zoloft 25mg qDaily 7. Con't other meds * Vit D 1000u qd * Calcium 500mg po BID * PPI DNR Reg diet Coumadin ppx Allergies: Coded Allergies: No Known Allergies (01/02/18) Disposition Summary Disposition Principal Diagnosis: humerus fracture Additional Diagnosis: gca Discharge Disposition: SNF Discharge Instructions General Discharge Information Code Status: Do Not Resucitate/Intubat Patient's Diet: regular Patient's Activity: as toelrated Follow-Up Instructions/Appts: see above Medications at Discharge Discharge Medications: Stop taking the following medications: Warfarin Sodium (Coumadin) 1 MG TABLET ORAL DAILY Continue taking these medications: Atorvastatin Calcium (Lipitor) 40 MG TABLET 1 Tablet ORAL DAILY Comments: Last Taken: 01/04/18 Time: 6PM Carvedilol (Carvedilol) 6.25 MG TABLET 1 Tablet ORAL TWICE DAILY Comments: Last Taken: 01/05/18 Time: 0920 AM Omeprazole (Omeprazole) 20 MG CAPSULE. 1 Capsule ORAL DAILY Comments: Last Taken: 01/05/18 Time: 0920 AM Sennosides/Docusate Sodium (Senna S Tablet) 8.6 MG-50 MG TABLET 1 Tablet ORAL TAKE AT BEDTIME Comments: Last Taken: 01/05/18 Time: 0920 AM Sertraline HCl (Zoloft) 25 MG TABLET 1 Tablet ORAL DAILY Comments: Last Taken: 01/05/18 Time: 0920 AM Prednisone (Prednisone) 1 MG TABLET 9 Milligram ORAL DAILY Comments: Last Taken: 01/05/18 Time: 0920 AM Calcium Carbonate (Calcium) 500 MG CALCIUM (1,250 MG) TABLET 1 Tablet ORAL TWICE DAILY Comments: Last Taken: 01/05/18 Time: 0920 AM Cholecalciferol (Vitamin D3) (Vitamin D) 1,000 UNIT TABLET 1 Tablet ORAL DAILY Comments: Last Taken: 01/05/18 Time: 0920 AM Copies To: Sameer Craig MD Attending MD Review Statement Documenting Attending: Sameer Craig MD Other Findings: Patient admitted to telemetry for fall with syncope. Patient has suffered fracture of right humerus. Orthopedics consutled in ER and recommend conservative management. Head CT negative for intracranial bleed. Patient on coumadin with therpautic INR. Cardiology appreciated regarding anticougaltion. Increased carvedilol for rate control. HOLD COUMADIN FOR NOW. Family/patient in agreement. PT ongoing. Discharge planning to [facility]. O/p F/u with Orthopeidcs in 2 weeks and cardiology in 2-[address] Hartley as per patient.
[2018-01-03 14:38] VITALS: BP 92/54
[2018-01-03 16:12] VITALS: BP 110/68
--- NOTE | 2018-01-03 16:25 | Patient Discharge Instructions ---
Discharge Instructions General Discharge Information You were seen/treated for: fracture of humerus Special Instructions: 1. please follow up with pcp in one week 2. please follow up with orthopedist Brittney in one week for repeat films of right proximal humerus [phone] - sling and co-aptation splint of right upper extremity - no motion of right upper extremity - non weight bearing right upper extremity - ice to right shoulder area and pain meds for pain control 3. please follow up with outreach consultant in 1 week for afib control maintenance. We have stopped your Warfarin due to bleeding risks. Discuss with your outreach consultant whether he would like to restart it. Acute Coronary Syndrome Inclusion Criteria At DC or during hospital stay patient has or had the following: ACS DIAGNOSIS No Discharge Core Measures Meds if any: Prescribed or Continued at Discharge Meds if any: NOT Prescribed or Continued at Discharge Congestive Heart Failure Inclusion Criteria At DC or during hospital stay patient has or had the following: CHF DIAGNOSIS No Discharge Core Measures Meds if any: Prescribed or Continued at Discharge Meds if any: NOT Prescribed or Continued at Discharge Cerebrovascular accident Inclusion Criteria At DC or during hospital stay patient has or had the following: CVA/TIA Diagnosis No Discharge Core Measures Meds if any: Prescribed or Continued at Discharge Meds if any: NOT Prescribed or Continued at Discharge Venous thromboembolism Inclusion Criteria VTE Diagnosis No VTE Type NONE VTE Confirmed by (Test) NONE Discharge Core Measures - Per Current guidelines, there needs to be overlap - treatment for the first 5 days of Warfarin therapy. - If discharged on Warfarin prior to 5 days of - overlap therapy, the patient will need to be - assessed for post discharge needs including - *Post discharge parental anticoagulation - *Warfarin and/or parental anticoagulation education - *Follow up date to check INR post discharge At least 5 days overlap therapy as Inpatient No Meds if any: Prescribed or Continued at Discharge Note: Overlap Therapy is Warfarin and Anticoagulant Meds if any: NOT Prescribed or Continued at Discharge
[2018-01-03 16:57] LABS: ABSOLUTE BASOPHIL COUNT 0 /CUMM (0.0-0.2); ABSOLUTE EOSINOPHIL COUNT 0.1 /CUMM (0.0-0.7); ABSOLUTE GRANULOCYTE CT 10.8 /CUMM (1.4-6.5); ABSOLUTE LYMPH COUNT 0.6 /CUMM (1.2-3.4); ABSOLUTE MONOCYTE COUNT 0.9 /CUMM (0.10-0.60); BASOPHIL % 0 % (0.0-2.0); EOSINOPHIL % 0.5 % (0-5); HEMATOCRIT 32.1 % (37-47); MEAN CORPUSCULAR HGB 26.6 PG (27.0-31.0); MEAN CORPUSCULAR HGB CONC 32.6 G/DL (33.0-37.0); MEAN CORPUSCULAR VOLUME 81.6 FL (81.0-99.0); PLATELET COUNT 469 /CUMM (130-400); RBC DISTRIBUTION WIDTH 16.7 % (11.5-14.5); RED BLOOD CELL CT 3.94 /CUMM (4.20-5.40); WHITE BLOOD CELL COUNT 12.4 /CUMM (4.8-10.8)
[2018-01-03 17:02] LABS: GRANULOCYTE % 87.4 % (42.2-75.2)
[2018-01-03 22:43] VITALS: BP 138/82
[2018-01-04 07:17] VITALS: BP 156/84
--- NOTE | 2018-01-04 08:50 | PN- Housestaff ---
Khalida LEE,Onur 01/04/18 0850: Subjective Follow-up For: Right humerus fracture Fall Tele-Events Since Last Visit: A. joni with HR in 60s-100s Subjective: Patient was seen and examined at bedside. She was resting comfortably. She had no acute events overnight. She denies any pain at rest, but has severe right arm pain with any motion, or palpitation. She denies any chest pain, palpitations, nausea, vomiting, fever, chills, tingling or numbness of her right arm Review of Systems Constitutional: Reports: no symptoms. EENTM: Reports: no symptoms. Cardiovascular: Denies: chest pain, palpitations. Respiratory: Reports: no symptoms. Gastrointestinal: Reports: no symptoms. Genitourinary: Reports: no symptoms. Musculoskeletal: Reports: joint pain (R arm only with motion). Objective Last 24 Hrs of Vital Signs/I&O Vital Signs Date Time Temp Pulse Resp B/P B/P Pulse O2 O2 Flow FiO2 Mean Ox Delivery Rate 01/04 0806 156/84 01/04 0717 97.7 105 16 156/84 94 01/03 2243 98.8 106 18 138/82 94 01/03 2001 94 110/64 01/03 1612 110/68 01/03 1438 98.1 98 20 92/54 94 Room Air 01/03 1114 98.0 108 18 152/78 01/03 0915 108 152/78 Intake & Output 01/04 1600 01/04 0800 01/04 0000 Intake Total 50 Output Total 300 Balance -250 Intake, Oral 50 Output, Urine 300 Patient 136 lb Weight Physical Exam General Appearance: Alert, Oriented X3, Cooperative, No Acute Distress Skin Temp/Moisture Exam: Warm/Dry Cardiovascular: Normal S1, Normal S2, irregularly irregular Lungs: Clear to Auscultation, Normal Air Movement Abdomen: Normal Bowel Sounds, Soft, No Tenderness Neurological: Normal Speech, Normal Tone, Sensation Intact Extremities: R arm in splint and sling, ecchymosis on exposed R arm above splint , tender to palpation Current Medications: Current Medications Sig/Alverto Start time Last Medication Dose Route Stop Time Status Admin Acetaminophen 650 MG Q6P PRN 01/02 1645 AC PO Atorvastatin Calcium 40 MG 1700 01/03 1700 AC 01/03 PO 1722 Calcium Carbonate 1,250 MG BID 01/02 2100 AC 01/04 PO 0806 Carvedilol 12.5 MG BID 01/03 2100 AC 01/04 PO 08 Carvedilol 6.25 MG ONCE ONE 01/03 1000 DC 01/03 PO 01/03 1001 1114 Carvedilol 6.25 MG BID 01/02 2100 DC 01/03 PO 0915 Cholecalciferol 1,000 IU DAILY 01/03 0900 AC 01/04 PO 0808 Ibuprofen 600 MG Q6P PRN 01/02 1645 AC PO Omeprazole 20 MG DAILY 01/03 0900 AC 01/04 PO 0808 Oxycodone/ 2 TAB Q6P PRN 01/02 1645 AC 01/03 Acetaminophen PO 1036 Prednisone 9 MG DAILY 01/02 1818 AC 01/04 PO 0808 Senna/Docusate Sodium 1 TAB DAILY PRN 01/02 1830 AC PO Sertraline HCl 25 MG DAILY 01/03 0900 AC 01/04 PO 0810 Last 24 Hrs of Lab/Ashish Results Last 24 Hrs of Labs/Mics: Laboratory Tests 01/04/18 0635: Anion Gap 7, Estimated GFR > 60, BUN/Creatinine Ratio 27.1 H, PT 35.3 H, INR 3.20 H, CBC w Diff NO MAN DIFF REQ, RBC 3.96 L, MCV 80.8 L, MCH 26.4 L, MCHC 32.7 L, RDW 16.6 H, MPV 8.1, Gran % 76.8 H, Lymphocytes % 11.1 L, Monocytes % 10.4 H, Eosinophils % 1.1, Basophils % 0.6, Absolute Granulocytes 7.5 H, Absolute Lymphocytes 1.1 L, Absolute Monocytes 1.0 H, Absolute Eosinophils 0.1 , Absolute Basophils 0.1 01/03/18 1605: CBC w Diff NO MAN DIFF REQ, RBC 3.94 L, MCV 81.6, MCH 26.6 L, MCHC 32.6 L, RDW 16.7 H, MPV 8.0, Gran % 87.4 H, Lymphocytes % 4.7 L, Monocytes % 7.4, Eosinophils % 0.5, Basophils % 0, Absolute Granulocytes 10.8 H, Absolute Lymphocytes 0.6 L, Absolute Monocytes 0.9 H, Absolute Eosinophils 0.1, Absolute Basophils 0 Assessment/Plan Assessment: This is a 82 yo female with very complex medical history including CAD S/P mid LAD PCI on 02/2017, chronic afib on coumadin, Giant cell arteritis (temporal artery biopsy was negative but ESR elevated, and empirically treated due to improvement on steroids) on chronic steroid taper with 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 vertebral artery dissection who comes in for CC of unwitnessed mechanical fall. In ED pt found to have over riding fracture of r. humerus which was placed in splint and sling. CT head did not show evidence of acute bleed. Overnight patient had stable vitals. Her WBC count was 9.8 and INR 3.20. PLAN: 1. fall w/ R. humeral fracture w/ head strike: Pt assessed by ortho PA and placed in splint and sling. CT head shows no evidence of bleed. A she will follow-up with orthopedics in 1 week for repeat films. She will use a sling and splint. She is not to move right upper extremity and will be nonweightbearing. Ice to right shoulder area and pain meds for pain control. neuro check q 2 2. PAF: Per [facility] notes it was unsure if her CVA was secondary to stopping coumadin or due to GCA. Today INR 3.49. If she has bleed will reverse appropriately. No vit K administered at this time. * INR remains supratherapeutic * per cardiology recommendations discontinue anticoagulation as she is at an increased risk for fall with bleed and patient will be instructed to follow up with her tar worker as an outpatient * Patient had slightly high rates overnight 95-130 so we will increase her Coreg to 12.5 twice a day. 3. Leukocytosis: WBC has fallen to 9.8 today .Pt afebrile with no evidence of infection. Could also be due to steroids. Likely reactive UA shows moderate bacteria, negative nitrates, negative leukocyte esterase, no symptoms. Follow off antibiotics. Blood cultures showing no growth 4. Thrombocytosis: Don't have any comparison. Will con't monitor.? acute phase reactant, trending down today Con't monitor 5. HX GCA/ Bilat cerebellar CVA and vertebral dissection: Con't Steroid taper per [facility] rheumatology 6. CAD Atorvastatin Carvedilol 7. Depression Continue Zoloft 25mg qDaily 8. Con't other meds Vit D 1000u qd Calcium 500mg po BID PPI DNR Reg diet DVT ppx: supratherapeutic INR, we'll monitor and begin subcutaneous heparin when subtherapeutic, ALPS Problem List: 1. Atrial fibrillation 2. Supratherapeutic INR 3. Right humeral fracture Pain Ratin Pain Location: pain well controlled at rest, pain of R arm with motion or palpation Pain Goal: Remain pain free Pain Plan: pain pathway Tomorrow's Labs & Rationales: cbc, bep, INR Sameer Craig 01/04/18 1307: Attending MD Review Statement Attending Statement Attending MD Statement: examined this patient, discuss w/resident/PA/RESTAURANT FRONT MANAGER, agreed w/resident/PA/RESTAURANT FRONT MANAGER, discussed with family, reviewed EMR data (avail), discussed with nursing, discussed with case mgmt, reviewed images, amended to note Attending Assessment/Plan: Patient admitted to telemetry for fall with syncope. Patient has suffered fracture of right humerus. Orthopedics consutled in ER and recommend conservative management. Head CT negative for intracranial bleed. Patient had episode of CVA in cerebellum in past. Overnight events no new complaints. Pain controlled. Sling +. AAOx3. Patient on coumadin with therpautic INR. Cardiology appreciated regarding anticougaltion. Increased carvedilol for rate control. HOLD COUMADIN FOR NOW. Frequent neurochecks and fall precautions. PT ongoing. Discharge planning to [facility]. O/p F/u with Orthopeidcs in 2 weeks.
[2018-01-04 09:03] LABS: PT 35.3 SEC (9.4-12.5)
[2018-01-04 09:04] LABS: ABSOLUTE BASOPHIL COUNT 0.1 /CUMM (0.0-0.2); ABSOLUTE EOSINOPHIL COUNT 0.1 /CUMM (0.0-0.7); ABSOLUTE GRANULOCYTE CT 7.5 /CUMM (1.4-6.5); ABSOLUTE LYMPH COUNT 1.1 /CUMM (1.2-3.4); BASOPHIL % 0.6 % (0.0-2.0); EOSINOPHIL % 1.1 % (0-5); GRANULOCYTE % 76.8 % (42.2-75.2); MEAN CORPUSCULAR HGB 26.4 PG (27.0-31.0); MEAN CORPUSCULAR HGB CONC 32.7 G/DL (33.0-37.0); MEAN CORPUSCULAR VOLUME 80.8 FL (81.0-99.0); MEAN PLATELET VOLUME 8.1 FL (7.4-10.4); PLATELET COUNT 423 /CUMM (130-400); RBC DISTRIBUTION WIDTH 16.6 % (11.5-14.5); RED BLOOD CELL CT 3.96 /CUMM (4.20-5.40); WHITE BLOOD CELL COUNT 9.8 /CUMM (4.8-10.8)
--- NOTE | 2018-01-04 11:15 | Cons- Cardiology ---
General Information and HPI Consulting Request Date of Consult: 01/04/18 Requested By: Sameer Craig MD History of Present Illness: Denisse is an 82 year old female with history of coronary arterey disease s/p PCI of the LAD and chronic atrial fibrillation. She reports being mildly active at her baseline and she normally walks with a walker and does okay. On the day of admission she was rushing to the bathroom and tripped with a resultant right arm fracture. The patient denies chest discomfort, shortness of breath or lightheadedness but does have occasional palpitations. It is noted that this patient had giant cell arteritis treated with steroids but also had bilateral cerebellar CVA's and left vertebral artery dissection and she continues to have episodes of confusion along with slurred speech. Allergies/Medications Allergies: Coded Allergies: No Known Allergies (01/02/18) Home Med List: Atorvastatin Calcium (Lipitor) 40 MG TABLET 1 TAB PO DAILY CHOLESTEROL ( Reported) Calcium Carbonate (Calcium) 500 MG CALCIUM (1,250 MG) TABLET 1 TAB PO BID SUPPLEMENT (Reported) Carvedilol 6.25 MG TABLET 1 TAB PO BID HEART/BP (Reported) Cholecalciferol (Vitamin D3) (Vitamin D) 1,000 UNIT TABLET 1 TAB PO DAILY SUPPLEMENT (Reported) Omeprazole 20 MG CAPSULE.DR 1 CAP PO DAILY GI (Reported) Prednisone 1 MG TABLET 9 MG PO DAILY STEROID (Reported) Sennosides/Docusate Sodium (Senna S Tablet) 8.6 MG-50 MG TABLET 1 TAB PO QHS GI (Reported) Sertraline HCl (Zoloft) 25 MG TABLET 1 TAB PO DAILY MENTAL HEALTH (Reported) Warfarin Sodium (Coumadin) 1 MG TABLET 1.5 TAB PO DAILY BLOOD THINNER ( Reported) Review of Systems Review of Systems: A review of systems is unremarkable. Past History Travel History Traveled to [place] past 21 day No Medical History Blood Transfusion Hx: No Neurological: CVA, AMS GIANT CELL ARTERITIS Cardiovascular: AFIB, CAD, hypertension, STEMI Surgical History Surgical History: non-contributory Psychosocial History Where Do You Live? Assisted Living Services at Home: None Smoking Status: Former Smoker Exam & Diagnostic Data Vital Signs and I&O Vital Signs Date Time Temp Pulse Resp B/P B/P Pulse O2 O2 Flow FiO2 Mean Ox Delivery Rate 01/04 0806 156/84 01/04 0717 97.7 105 16 156/84 94 01/03 2243 98.8 106 18 138/82 94 01/03 2001 94 110/64 01/03 1612 110/68 01/03 1438 98.1 98 20 92/54 94 Room Air 01/03 1114 98.0 108 18 152/78 Intake & Output 01/04 1600 01/04 0800 01/04 0000 01/03 1600 01/03 0800 01/03 0000 Intake Total 50 480 120 120 Output Total 300 100 Balance -250 480 20 120 Intake, Oral 50 480 120 120 Output, Urine 300 100 Patient 136 lb 132 lb Weight Weight Bed scale Measurement Method Physical Exam: General: WD/WN male in NAD; alert and oriented x 3 HEENT: NC/AT, PERRL, EOMI Neck: no JVD, no carotid bruit Heart: irregularly irregular Lungs: clear bilaterally Abdomen: soft, NT, +ve bowel Extremities: no edema Assessment/Plan Assessment/Plan * This patient with chronic atrial fibrillation has a clear indication for chronic anticoagulation. The concern is her propensity to fall which occured despite being in an assisted living facility. This concern is augmented by the fact that she his her head. The patient is intermittently confused, weak and has reported bilateral cerevellar infarcts which presumably can affect her coordination and the patient admits to unsteadiness with walking if it is without her walker. I think she is a high risk for a dangerous bleed and would opt to hold anticoagulation. * The patient is otherwise hemodynamically stable without any other significant dysrhythmias. Continue current medications except for coumadin. Follow up with her usual deicer tester. Consult Acknowledgment - Thank you for your consult request.
[2018-01-04 15:00] VITALS: BP 98/60
[2018-01-04 23:00] VITALS: BP 100/66
[2018-01-05 06:24] VITALS: BP 110/64
[2018-01-05 08:19] LABS: ABSOLUTE BASOPHIL COUNT 0 /CUMM (0.0-0.2); ABSOLUTE EOSINOPHIL COUNT 0.2 /CUMM (0.0-0.7); ABSOLUTE GRANULOCYTE CT 9.5 /CUMM (1.4-6.5); ABSOLUTE MONOCYTE COUNT 0.8 /CUMM (0.10-0.60); BASOPHIL % 0.3 % (0.0-2.0); EOSINOPHIL % 1.5 % (0-5); HEMATOCRIT 33.5 % (37-47); MEAN CORPUSCULAR HGB 26.5 PG (27.0-31.0); MEAN CORPUSCULAR HGB CONC 32.8 G/DL (33.0-37.0); MEAN CORPUSCULAR VOLUME 80.8 FL (81.0-99.0); PLATELET COUNT 565 /CUMM (130-400); RBC DISTRIBUTION WIDTH 15.9 % (11.5-14.5); RED BLOOD CELL CT 4.14 /CUMM (4.20-5.40); WHITE BLOOD CELL COUNT 11.6 /CUMM (4.8-10.8)
[2018-01-05 08:29] LABS: PT 28.2 SEC (9.4-12.5)
--- NOTE | 2018-01-05 09:10 | PN- Cardiology ---
Subjective Subjective: * Patient is very confused this morning but without complaints. * atrial fibrillation with heart rate at the upper limits of normal * WBC is 11.6 Objective Vital Signs and I&Os Vital Signs Date Time Temp Pulse Resp B/P B/P Pulse O2 O2 Flow FiO2 Mean Ox Delivery Rate 01/05 0624 97.9 94 19 110/64 94 Room Air 01/04 2300 97.6 99 18 100/66 96 Room Air 01/04 2136 92 124/70 01/04 1500 97.9 98 18 98/60 95 Room Air Intake & Output 01/05 1600 01/05 0800 01/05 0000 01/04 1600 01/04 0800 01/04 0000 Intake Total 200 240 50 Output Total 400 400 300 Balance 200 -160 -400 -250 Intake, Oral 200 240 50 Output, Urine 400 400 300 Patient 133 lb 136 lb Weight Weight Bed scale Measurement Method Physical Exam: General: WD/WN male in NAD; confused HEENT: NC/AT, PERRL, EOMI Neck: no JVD, no carotid bruit Heart: irregularly irregular Lungs: clear bilaterally Abdomen: soft, NT, +ve bowel Extremities: no edema Assessment/Plan Assessment/Plan General: WD/WN male in NAD; alert and oriented x 3 HEENT: NC/AT, PERRL, EOMI Neck: no JVD, no carotid bruit Heart: irregularly irregular Lungs: clear bilaterally Abdomen: soft, NT, +ve bowel Extremities: no edema * This patient with chronic atrial fibrillation has a clear indication for chronic anticoagulation. The concern is her propensity toward repeated falls considering her intermittent confusion and prior bilateral cerebellar CVA's. Her recent fall which occured despite being in an assisted living facility was particularly concerning since she hit her head. I think she is a high risk for a dangerous bleed and would opt to hold anticoagulation. * The patient is otherwise hemodynamically stable without any other significant dysrhythmias. Her heart rate is well controlled on her current dose of beta sandeep. Follow up with her usual cab worker. Continue telemetry? No
[2018-01-05 14:02] VITALS: BP 122/80
[2018-01-05 15:11] VITALS: BP 122/80
--- NOTE | 2018-01-05 15:35 | PN- Housestaff ---
Joyce Simms MD 01/05/18 1535: Subjective Follow-up For: Right humerus fracture Fall Complaints: pain scale (0-10) Tele-Events Since Last Visit: 92-130, 154 at 9:48am Subjective: Patient is feeling better, still continues to have some pain in the left orbit and right arm sp fall Review of Systems Constitutional: Reports: no symptoms. Cardiovascular: Reports: no symptoms. Respiratory: Reports: no symptoms. Gastrointestinal: Reports: no symptoms. Musculoskeletal: Reports: see HPI, joint pain, muscle pain. Objective Last 24 Hrs of Vital Signs/I&O Vital Signs Date Time Temp Pulse Resp B/P B/P Pulse O2 O2 Flow FiO2 Mean Ox Delivery Rate 01/05 1511 98.1 76 20 122/80 01/05 1402 98.1 76 20 122/80 95 Room Air 01/05 0919 94 110/64 01/05 0624 97.9 94 19 110/64 94 Room Air 01/04 2300 97.6 99 18 100/66 96 Room Air 01/04 2136 92 124/70 Intake & Output 01/05 1600 01/05 0800 01/05 0000 Intake Total 200 240 Output Total 200 400 Balance -200 200 -160 Intake, Oral 200 240 Output, Urine 200 400 Patient 133 lb Weight Weight Bed scale Measurement Method Physical Exam General Appearance: Alert, Oriented X3, Cooperative, No Acute Distress Extremities: No Clubbing, No Cyanosis, No Edema, Normal Pulses, right arm in sling, bandaged, bruising noted Assessment/Plan Assessment: This is a 82 yo female with very complex medical history including CAD S/P mid LAD PCI on 02/2017, chronic afib on coumadin, Giant cell arteritis (temporal artery biopsy was negative but ESR elevated, and empirically treated due to improvement on steroids) on chronic steroid taper with 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 vertebral artery dissection who comes in for CC of unwitnessed mechanical fall. In ED pt found to have over riding fracture of r. humerus which was placed in splint and sling. CT head did not show evidence of acute bleed. Overnight patient had stable vitals. Her WBC count was 9.8 and INR 3.20. PLAN: 1. fall w/ R. humeral fracture w/ head strike: Pt assessed by ortho PA and placed in splint and sling. CT head shows no evidence of bleed. A she will follow-up with orthopedics in 1 week for repeat films. She will use a sling and splint. She is not to move right upper extremity and will be nonweightbearing. Ice to right shoulder area and pain meds for pain control. neuro check q 2 2. PAF: Per [facility] notes it was unsure if her CVA was secondary to stopping coumadin or due to GCA. Today INR 3.49. If she has bleed will reverse appropriately. No vit K administered at this time. * INR remains supratherapeutic * per cardiology recommendations discontinue anticoagulation as she is at an increased risk for fall with bleed and patient will be instructed to follow up with her cardiac specialist as an outpatient * Patient had slightly high rates overnight 95-130 so we will increase her Coreg to 12.5 twice a day. 3. Leukocytosis: WBC has fallen to 9.8 today .Pt afebrile with no evidence of infection. Could also be due to steroids. Likely reactive UA shows moderate bacteria, negative nitrates, negative leukocyte esterase, no symptoms. Follow off antibiotics. Blood cultures showing no growth 4. Thrombocytosis: Don't have any comparison. Will con't monitor.? acute phase reactant, trending down today Con't monitor 5. HX GCA/ Bilat cerebellar CVA and vertebral dissection: Con't Steroid taper per [facility] rheumatology 6. CAD Atorvastatin Carvedilol 7. Depression Continue Zoloft 25mg qDaily 8. Con't other meds Vit D 1000u qd Calcium 500mg po BID PPI DNR Reg diet DVT ppx: supratherapeutic INR, we'll monitor and begin subcutaneous heparin when subtherapeutic, ALPS Problem List: 1. Supratherapeutic INR 2. Fall due to stumbling 3. Right humeral fracture 4. Atrial fibrillation 5. Leukocytosis Pain Ratin Pain Location: right arm and left orbit Pain Goal: Pain 4 or less Pain Plan: pathway Tomorrow's Labs & Rationales: to be Sameer Dawson 01/05/18 8323: Attending MD Review Statement Attending Statement Attending MD Statement: examined this patient, discuss w/resident/PA/MAKEUP ARTIST, agreed w/resident/PA/MAKEUP ARTIST, discussed with family, reviewed EMR data (avail), discussed with nursing, discussed with case mgmt, reviewed images, amended to note Attending Assessment/Plan: PT ongoing. Discharge planning to [facility]. O/p F/u with Orthopeidcs in 2 weeks and cardiology in 2-3 weeks of discharge. Update family. Coumadin on hold.
== END 2018-01-05 16:20 | DRG 563 ==
LOC: ERH 07:13 → 1NO 16:06 → ERHI 16:06 → EDBEDREQ 17:03 → ENRESERV 19:03 → ENTRNSPT 20:18 → EDTRNSPT 20:33 → EDTRNSPTSTS 20:33 → 1NO 20:40 → CMPTRNSPT 20:51 → ENPENDDIS 01-05 14:37 → 1NO 01-05 14:56
PROVIDERS: Dermatology; Emergency Medicine; Student in an Organized Health Care Education/Training Program
DX: S42.291A Other displaced fracture of upper end of right humerus, initial encounter for closed fracture (principal); M31.6 Other giant cell arteritis; I48.2 Chronic atrial fibrillation; S00.12XA Contusion of left eyelid and periocular area, initial encounter; D72.829 Elevated white blood cell count, unspecified; D47.3 Essential (hemorrhagic) thrombocythemia; I69.322 Dysarthria following cerebral infarction; S70.12XA Contusion of left thigh, initial encounter; F32.9 Major depressive disorder, single episode, unspecified; I25.10 Atherosclerotic heart disease of native coronary artery without angina pectoris; W01.198A Fall on same level from slipping, tripping and stumbling with subsequent striking against other object, initial encounter; Y92.091 Bathroom in other non-institutional residence as the place of occurrence of the external cause; I10 Essential (primary) hypertension; I25.2 Old myocardial infarction; Z66 Do not resuscitate; Z98.61 Coronary angioplasty status; Z79.01 Long term (current) use of anticoagulants
CPT/HCPCS: 1NSP; 36415; 36592; 71045; 73060-RT; 73080-LT; 73562-RT; 81001; 82436; 87040; 93005; 93010; 96374; 97110-GO; 97112-GP; 97116-GO; 97162-GP; 97166-GO; 97530-GO; 97530-GP; G8978-GP; G8979-GP; J1650; J7512

== ENCOUNTER 2018-01-09 13:34 | Emergency (ER) | payer OTHER, MEDICARE ==
[~2018-01-09] VITALS: Ht 157.5 cm; Wt 59.0 kg
[~2018-01-09 13:34] MED LIST: CALCIUM500 M1 PO; CARVEDILOL6.25 M1 PO; COUMADIN1 M1 PO; LIPITOR40 M1 PO; OMEPRAZOLE20 M2 PO; PREDNISONE1 MG PO; SENNA S TABLET1 EACH PO; VITAMIN D1000 UNIT PO; ZOLOFT25 M1 PO
[2018-01-09 15:03] LABS: ABSOLUTE BASOPHIL COUNT 0 /CUMM (0.0-0.2); ABSOLUTE EOSINOPHIL COUNT 0.1 /CUMM (0.0-0.7); ABSOLUTE GRANULOCYTE CT 14.6 /CUMM (1.4-6.5); ABSOLUTE LYMPH COUNT 0.6 /CUMM (1.2-3.4); ABSOLUTE MONOCYTE COUNT 0.4 /CUMM (0.10-0.60); BASOPHIL % 0.2 % (0.0-2.0); EOSINOPHIL % 0.6 % (0-5); GRANULOCYTE % 92.5 % (42.2-75.2); HEMATOCRIT 34.2 % (37-47); MEAN CORPUSCULAR HGB 26.9 PG (27.0-31.0); MEAN CORPUSCULAR HGB CONC 33.4 G/DL (33.0-37.0); MEAN CORPUSCULAR VOLUME 80.6 FL (81.0-99.0); MEAN PLATELET VOLUME 7.7 FL (7.4-10.4); PLATELET COUNT 580 /CUMM (130-400); RBC DISTRIBUTION WIDTH 16.7 % (11.5-14.5); RED BLOOD CELL CT 4.24 /CUMM (4.20-5.40); WHITE BLOOD CELL COUNT 15.8 /CUMM (4.8-10.8)
[2018-01-09] MEDS ORDERED: ZOFRAN4 M2 PO (15:06)
--- NOTE | 2018-01-09 15:29 | CT SCAN REPORT ---
EXAMINATION: CT HEAD WITHOUT CONTRAST CLINICAL INFORMATION: Headache. COMPARISON: 01/02/2018 TECHNIQUE: Contiguous axial imaging was performed from the skull base to vertex without intravenous administration of contrast. FINDINGS: There is no evidence of acute intracranial hemorrhage or territorial infarction. No abnormal mass effect or midline shift is seen. Nevarez to white matter differentiation is well preserved. No extra-axial fluid collections are identified. Moderate cerebral volume loss is again seen, with ventricular and sulcal prominence. There is extensive periventricular and deep white matter hypodensities, most compatible with chronic microangiopathic changes. Bilateral lens extraction. Redemonstrated is soft tissue swelling in the left periorbital region. The osseous structures and soft tissues are normal. The mastoid air cells and visualized portions of the paranasal sinuses are well aerated. IMPRESSION: No CT evidence of acute intracranial pathology. Chronic changes as detailed above.
--- NOTE | 2018-01-09 17:08 | ED GENERAL ADULT ---
History of Present Illness General Chief Complaint: General Adult Stated Complaint: +N,+V,+D Source: patient, family, old records, EMS Exam Limitations: no limitations Allergies Coded Allergies: No Known Allergies (01/02/18) Reconcile Medications Atorvastatin Calcium (Lipitor) 40 MG TABLET 1 TAB PO DAILY CHOLESTEROL ( Reported) Calcium Carbonate (Calcium) 500 MG CALCIUM (1,250 MG) TABLET 1 TAB PO BID SUPPLEMENT (Reported) Carvedilol 6.25 MG TABLET 1 TAB PO BID HEART/BP (Reported) Cholecalciferol (Vitamin D3) (Vitamin D) 1,000 UNIT TABLET 1 TAB PO DAILY SUPPLEMENT (Reported) Omeprazole 20 MG CAPSULE.DR 1 CAP PO DAILY GI (Reported) Ondansetron HCl (Zofran) 4 MG TABLET 1 TAB PO Q8P PRN NAUSEA/VOMITING ( Reported) Prednisone 1 MG TABLET 9 MG PO DAILY STEROID (Reported) Sennosides/Docusate Sodium (Senna S Tablet) 8.6 MG-50 MG TABLET 1 TAB PO QHS GI (Reported) Sertraline HCl (Zoloft) 25 MG TABLET 1 TAB PO DAILY MENTAL HEALTH (Reported) Triage Note: PT BIBA FROM REHAB FOR FX HUMEROUS X1WEEK. PT WAS SEEN HERE AT [facility] 1 WEEK AGO AND SENT TO [facility] FOR [facility]. PER EMS PT WAS BROUGHT IN FOR +N, +V ABD +D. PT STATES THAT SHE IS FINE AND MADE HERSELF VOMIT BECAUSE THEY WERE TO ROUGH WITH HER.. PT IS AOX3 Triage Nurses Notes Reviewed? yes Onset: Abrupt Duration: day(s): Timing: recent history HPI: 82-year-old female that has a recent right humerus fracture comes into the emergency room sent in by nursing facility for reported vomiting diarrhea. Patient reports that she had a couple episodes of vomiting today. The diarrhea has been going on for couple weeks. The diarrhea was going on prior to her fall which ended up causing her to be in the correction to begin with. She reports that she has a mild headache. She denies any vision change. She denies any chest pain shortness of breath. She denies any abdominal pain. The humerus fracture requires no surgery. Family reports that she's been acting some more confused lately. (Marcos WINSLOW,Sean) Vital Signs & Intake/Output Vital Signs & Intake/Output Vital Signs Date Time Temp Pulse Resp B/P B/P Pulse O2 O2 Flow FiO2 Mean Ox Delivery Rate 01/09 2037 98.3 100 16 143/85 97 Room Air 01/09 1945 97.8 99 18 153/98 95 Room Air 01/09 1432 Room Air 01/09 1348 96.9 108 16 152/86 97 Room Air (Kusum LEE,Rivera Betts) Past History Travel History Traveled to [place] past 21 day No Medical History Any Pertinent Medical History? see below for history Neurological: CVA, AMS GIANT CELL ARTERITIS Cardiovascular: AFIB, CAD, hypertension, STEMI History of MRSA: No History of VRE: No History of CDIFF: No Influenza Vaccine: 05/17/17 Surgical History Surgical History: non-contributory Psychosocial History Who do you live with Patient/Self Services at Home None What is your primary language Dominican Tobacco Use: Never used Family History Hx Contributory? No (Sean Ivey) Review of Systems Review of Systems Constitutional: Reports: see HPI. EENTM: Reports: no symptoms. Respiratory: Reports: no symptoms. Cardiovascular: Reports: no symptoms. GI: Reports: see HPI. Genitourinary: Reports: no symptoms. Musculoskeletal: Reports: see HPI. Skin: Reports: no symptoms. Neurological/Psychological: Reports: see HPI. Hematologic/Endocrine: Reports: no symptoms. Immunologic/Allergic: Reports: no symptoms. All Other Systems: Reviewed and Negative (Sean Ivey) Physical Exam Physical Exam General Appearance: alert, awake Head: ecchymosis Eyes: Bilateral: normal appearance. Ears, Nose, Throat: hearing grossly normal Neck: normal inspection Respiratory: no respiratory distress Cardiovascular: irregularly irregular Gastrointestinal: soft, non-tender Back: decreased range of motion Extremities: splint in place in right arm, right radial pulse 2+, production control coordinator strength intact, good cap refill, gross sensation intact, Neurologic/Psych: awake, alert, oriented x 3 Skin: intact, normal color Core Measures ACS in differential dx? Yes CVA/TIA Diagnosis: No Sepsis Present: No Sepsis Focused Exam Completed? No (Sean Ivey) Progress Differential Diagnoses I considered the following diagnoses in my evaluation of the patient: UTI, CVA, gastroenteritis, intercranial bleed, temporal arteritis, Diagnostic Imaging: Viewed by Me: CT Scan. Discussed w/RAD: CT Scan. Radiology Impression: PATIENT: CORINA SANCHEZ PRESENT AGE: 82 PATIENT ACCOUNT NO: [id number] : 33 LOCATION: [facility] [place] ORDERING PHYSICIAN: Sean WINSLOW SERVICE DATE: 01/09/18-1418 EXAM TYPE: CAT - CT HEAD WO IV CONTRAST EXAMINATION: CT HEAD WITHOUT CONTRAST CLINICAL INFORMATION: Headache. COMPARISON: 01/02/2018 TECHNIQUE: Contiguous axial imaging was performed from the skull base to vertex without intravenous administration of contrast. FINDINGS: There is no evidence of acute intracranial hemorrhage or territorial infarction. No abnormal mass effect or midline shift is seen. Nevarez to white matter differentiation is well preserved. No extra-axial fluid collections are identified. Moderate cerebral volume loss is again seen, with ventricular and sulcal prominence. There is extensive periventricular and deep white matter hypodensities, most compatible with chronic microangiopathic changes. Bilateral lens extraction. Redemonstrated is soft tissue swelling in the left periorbital region. The osseous structures and soft tissues are normal. The mastoid air cells and visualized portions of the paranasal sinuses are well aerated. IMPRESSION: No CT evidence of acute intracranial pathology. Chronic changes as detailed above. DICTATED BY: Isaak Carson MD DATE/TIME DICTATED: 01/09/181458 DOCUMENT IMAGE TECHNICIAN:RANDALL DATE/TIME TRANSCRIBED:01/09/181458 CONFIDENTIAL, DO NOT COPY WITHOUT APPROPRIATE AUTHORIZATION. <Electronically signed in Other Vendor System> SIGNED BY: Isaak Carson MD 01/09/18 1529 Initial ED EKG: rate (103), AFIB (Marcos WINSLOW,Sean) Plan of Care: Orders Procedure Date/time Status Straight Cath 01/09 1826 Active LACTIC ACID 01/09 1647 Complete BLOOD CULTURE 01/09 1540 Active URINALYSIS 01/09 1540 Complete TROPONIN LEVEL 01/09 1347 Complete LIPASE 01/09 1347 Complete LACTIC ACID 01/09 1347 Complete COMPREHENSIVE METABOLIC PANEL 01/09 1347 Complete CBC WITHOUT DIFFERENTIAL 01/09 134 Complete EKG 01/09 1347 Active Laboratory Tests 01/09/18 1832: Urinalysis LIGHT H, Urine Color YEL, Urine Clarity CLEAR, Urine pH 6.0, Ur Specific [place] 1.025, Urine Protein TRACE H, Urine Ketones NEG, Urine Nitrite NEG, Urine Bilirubin NEG, Urine Urobilinogen 0.2, Ur Leukocyte Esterase NEG, Ur Microscopic SEDIMENT EXAMINED, Urine RBC 1-3, Urine WBC 3-5 H, Ur Epithelial Cells RARE, Urine Hemoglobin NEG, Urine Glucose NEG 01/09/18 1708: Lactic Acid 0.9 01/09/18 1445: Anion Gap 10, Estimated GFR > 60, BUN/Creatinine Ratio 36.7 H, Glucose 132 H, Lactic Acid 0.8, Calcium 8.9, Total Bilirubin 0.8, AST 17, ALT 32, Alkaline Phosphatase 76, Troponin I < 0.01, Total Protein 5.8 L, Albumin 3.4 L, Globulin 2.4, Albumin/Globulin Ratio 1.4, Lipase 166, CBC w Diff MAN DIFF ORDERED, RBC 4.24, MCV 80.6 L, MCH 26.9 L, MCHC 33.4, RDW 16.7 H, MPV 7.7, Gran % 92.5 H, Lymphocytes % 4.0 L, Monocytes % 2.7, Eosinophils % 0.6, Basophils % 0.2, Absolute Granulocytes 14.6 H, Absolute Lymphocytes 0.6 L, Absolute Monocytes 0.4, Absolute Eosinophils 0.1, Absolute Basophils 0, Platelet Estimate VERIFIED BY SMEAR, Polychromasia 1+, Poikilocytosis 1+, Anisocytosis 1+ , Ovalocytes 1+, Aric Cells 1+ Microbiology 01/09 1715 BLOOD: Blood Culture - RECD 01/09 1700 BLOOD: Blood Culture - RECD (Kusum LEE,Rivera Betts) Departure Departure Disposition: HOME OR SELF CARE Condition: Stable Clinical Impression Primary Impression: Headache Secondary Impressions: Vomiting Referrals: Patient Has No Primary Care Dr (PCP/Family) Additional Instructions: Follow-up with primary care doctor. Have white blood cell count rechecked again tomorrow. Return if any concerns worsening symptoms. Departure Forms: Customer Survey General Discharge Information Comments 01/09/2018 8:55:16 PM Patient clinically looks well. Patient is in no apparent distress. Patient is nontoxic-appearing. She has had no vomiting or diarrhea here. She has no complaints of abdominal pain. Her headache is completely resolved after Tylenol. CT scan shows nothing acute. Sedimentation rate elevated white blood cell count but no source of infection. Urine is clear. She has no complaints of chest pain or shortness of breath. No cough. At this time I feel patient is stable for discharge and able to go back to correction. Patient was seen by Dr. Noe. Results were discussed with the patient as well as the family. I spoke with the daughter on the phone with the results. All questions were addressed. (Sean Ivey) PA/CAMPUS POLICE OFFICER Co-Sign Statement Statement: ED Attending supervision documentation- [X] I saw and evaluated the patient. I have also reviewed all the pertinent lab results and diagnostic results. I agree with the findings and the plan of care as documented in the PA's/CAMPUS POLICE OFFICER's documentation. Patient presents for evaluation of nausea vomiting at her rehabilitation facility. Physical examination reveals a comfortable-appearing woman in fact sleeping upon my arrival to the room. No apparent respiratory distress. Right arm in a sling. [] I have reviewed the ED Record and agree with the PA's/CAMPUS POLICE OFFICER's documentation. [] Additions or exceptions (if any) to the PAs/CAMPUS POLICE OFFICER's note and plan are summarized below: [] (Kusum LEE,Rivera Betts) Critical Care Note Critical Care Note Critical Care Time: non-applicable (Sean Ivey)
[2018-01-09 20:37] VITALS: BP 143/85
== END 2018-01-09 21:54 ==
LOC: ERH 13:34
PROVIDERS: Physician Assistant Medical
DX: R51 Headache (principal); R11.10 Vomiting, unspecified
CPT/HCPCS: 81001; 87040; 93005; 93010; 96374; 96375; J0131; J2405

== ENCOUNTER 2018-01-10 05:55 | Inpatient (IN) | payer OTHER, MEDICARE ==
[~2018-01-10] VITALS: Ht 167.6 cm; Wt 61.5 kg
[~2018-01-10 05:55] MED LIST changes: +ZOFRAN4 M2 PO
--- NOTE | 2018-01-10 05:59 | ED AMS/SEIZURE/WEAK/DIZZY ---
See Addendum History of Present Illness General Chief Complaint: General Adult Stated Complaint: BIBA, WEAKNESS Source: patient Exam Limitations: clinical condition Vital Signs & Intake/Output Vital Signs & Intake/Output Vital Signs Date Time Temp Pulse Resp B/P B/P Pulse O2 O2 Flow FiO2 Mean Ox Delivery Rate 01/10 0918 112 182/94 01/10 0732 Room Air 01/10 0656 112 20 175/96 97 Room Air 01/10 0604 Room Air 01/10 0600 95.1 111 20 180/94 95 Room Air Allergies Coded Allergies: No Known Allergies (01/02/18) Reconcile Medications Atorvastatin Calcium (Lipitor) 40 MG TABLET 1 TAB PO DAILY CHOLESTEROL ( Reported) Calcium Carbonate (Calcium) 500 MG CALCIUM (1,250 MG) TABLET 1 TAB PO BID SUPPLEMENT (Reported) Carvedilol 6.25 MG TABLET 1 TAB PO BID HEART/BP (Reported) Cholecalciferol (Vitamin D3) (Vitamin D) 1,000 UNIT TABLET 1 TAB PO DAILY SUPPLEMENT (Reported) Omeprazole 20 MG CAPSULE.DR 1 CAP PO DAILY GI (Reported) Ondansetron HCl (Zofran) 4 MG TABLET 1 TAB PO Q8P PRN NAUSEA/VOMITING ( Reported) Prednisone 1 MG TABLET 9 MG PO DAILY STEROID (Reported) Sennosides/Docusate Sodium (Senna S Tablet) 8.6 MG-50 MG TABLET 1 TAB PO QHS GI (Reported) Sertraline HCl (Zoloft) 25 MG TABLET 1 TAB PO DAILY MENTAL HEALTH (Reported) Triage Nurses Notes Reviewed? yes Onset: Gradual Duration: day(s): Timing: recent history Injury Environment: REHAB Severity: mild, moderate Associated Symptoms: INCREASED LETHARGY/WEAKNESS HPI: 82 yo woman from rehab facility, h/o afib, h/o humerus fracture last week, presents for 2nd episode of lethargy. Per the medics, at the rehab, she is "slow to respond," and "more lethargic" this morning. She was sent to this ED yesterday for an episode of diarrhea and vomiting, had a benign evaluation, and was sent back. This morning, she seemed more lethargic to staff, slower to respond, weaker. At baseline, she is able to ambulate somewhat, is able to speak in complete sentences, is more alert, and sometimes confused. (Yasmani Barnes MD) Past History Travel History Traveled to [place] past 21 day No Medical History Any Pertinent Medical History? see below for history Neurological: CVA, AMS GIANT CELL ARTERITIS Cardiovascular: AFIB, CAD, hypertension, STEMI History of MRSA: No History of VRE: No History of CDIFF: No Influenza Vaccine: 05/17/17 Surgical History Surgical History: non-contributory Psychosocial History Who do you live with Patient/Self Services at Home None What is your primary language Cape Verdean Family History Hx Contributory? No (Yasmani Barnes MD) Review of Systems Review of Systems Constitutional: Reports: no symptoms. EENTM: Reports: no symptoms. Respiratory: Reports: no symptoms. Cardiovascular: Reports: no symptoms. GI: Reports: no symptoms. Genitourinary: Reports: no symptoms. Musculoskeletal: Reports: no symptoms. Skin: Reports: no symptoms. Neurological/Psychological: Reports: no symptoms. Hematologic/Endocrine: Reports: no symptoms. Immunologic/Allergic: Reports: no symptoms. All Other Systems: Reviewed and Negative (Yasmani Barnes MD) Physical Exam Physical Exam General Appearance: well developed/nourished, no apparent distress Head: left facial ecchymosis, old Eyes: Bilateral: normal appearance, PERRL, EOMI. Ears, Nose, Throat: normal pharynx, dry mucosa Neck: normal inspection, supple, full range of motion Respiratory: normal breath sounds, chest non-tender, no respiratory distress Cardiovascular: irreg irregular Gastrointestinal: normal bowel sounds, soft, non-tender Back: normal inspection Extremities: evidence of injury, right arm in splint w/ appropriate eccymosis, distal pulse intact. pt able to move arm well, without problem. Neurologic/Psych: sleepy, axox2, Skin: intact, normal color Core Measures ACS in differential dx? No CVA/TIA Diagnosis No Sepsis Present: No Sepsis Focused Exam Completed? No (Yasmani Barnes MD) Progress Differential Diagnosis: arrythmia, CVA/stroke, dehydration, encephalitis, hypoxia, intracranial Hem., intracranial mass/tumor Plan of Care: Orders Procedure Date/time Status Heart Healthy Diet 01/10 L Active OXYGEN SETUP (GEN) 01/10 821 Active Saline Lock 01/[address] in observation 01/10 821 Active Vital Signs 04/27 0821 Active Activity/Ambulation 01/10 08 Active Code Status 01/10 0821 Active Add-on Test (ER Only) 01/10 08 Active PT Evaluate & Treat 01/10 07 Active CASE MANAGEMENT CONSULT 01/10 0748 Active LACTIC ACID 01/11 612 Complete URINALYSIS 01/10 610 Complete TROPONIN LEVEL 01/10 610 Complete LIPASE 01/10 610 Complete HEPATIC FUNCTION PANEL 01/10 610 Complete CBC WITHOUT DIFFERENTIAL 01/10 610 Complete BASIC METABOLIC PANEL 01/10 610 Complete AMYLASE 01/10 610 Complete EKG 01/10 601 Active Current Medications Sig/Alverto Start time Last Medication Dose Stop Time Status Admin Atorvastatin Calcium 40 MG DAILY 01/10 900 UNVr (Lipitor) Carvedilol 6.25 MG BID 01/10 900 UNVr (Coreg) Omeprazole 20 MG DAILY 01/10 900 UNVr (Prilosec) Laboratory Tests 01/10/18622: Urinalysis LIGHT H, Urine Color YEL, Urine Clarity HAZY H, Urine pH 6.0, Ur Specific [place] >= 1.030, Urine Protein TRACE H, Urine Ketones NEG, Urine Nitrite NEG, Urine Bilirubin NEG, Urine Urobilinogen 0.2, Ur Leukocyte Esterase NEG, Ur Microscopic SEDIMENT EXAMINED, Urine RBC 3-5, Urine WBC 1-3 H, Ur Epithelial Cells FEW, Urine Bacteria RARE H, Urine Mucus MOD H, Urine Hemoglobin NEG, Urine Glucose NEG 01/10/18611: Lactic Acid 0.8 01/10/18611: Anion Gap 8, Estimated GFR > 60, BUN/Creatinine Ratio 30.0 H, Glucose 102 H, Calcium 9.1, Total Bilirubin 0.8, Direct Bilirubin 0.3, AST 16, ALT 29, Alkaline Phosphatase 75, Troponin I 0.03, Total Protein 5.6 L, Albumin 3.3 L, Amylase 95, Lipase 132, CBC w Diff MAN DIFF ORDERED, RBC 4.26, MCV 81.7, MCH 26.6 L, MCHC 32.5 L, RDW 16.6 H, MPV 7.5, Gran % 86.3 H, Lymphocytes % 5.8 L, Monocytes % 7.0, Eosinophils % 0.6, Basophils % 0.3, Absolute Granulocytes 14.7 H, Segmented Neutrophils 86 H, Absolute Lymphocytes 1.0 L, Lymphocytes 6 L, Monocytes 7, Absolute Monocytes 1.2 H, Eosinophils 1, Absolute Eosinophils 0.1, Absolute Basophils 0, Platelet Estimate INCREASED, Polychromasia 1+, Hypochromic -Microcytic 1+, Poikilocytosis 2+, Ovalocytes 1+, Stomatocytes 1+, Fld Total RBCs Counted 100 Diagnostic Imaging: Viewed by Me: CT Scan. Discussed w/RAD: CT Scan. Initial ED EKG: AFIB, NO CHANGE FROM PRIOR Hand-Off Endorsed To: Tod Jennings MD Endorsed Time: 0700 Pending: CT, consult, Xray (Yasmani Barnes MD) Departure Departure Disposition: STILL A PATIENT Condition: Stable Referrals: Patient Has No Primary Care Dr (PCP/Family) Departure Forms: Customer Survey General Discharge Information Comments 01/10/18, 6:38am... pt lethargic, but vitals stable in ED... updated daughter who is at bedside. pt to be signed out to dr. jennings at 7am, labs/imaging pending. (Yasmani Barnes MD) Departure Time of Disposition: 729 Clinical Impression Primary Impression: Altered mental status Secondary Impressions: Dehydration, Lethargy, Leukocytosis, Nausea, vomiting, and diarrhea Observation Note Spoke With: Sameer Craig MD Physician Advisor Notified: ROSEMARY LEE,VASYL Castillo Place Patient In: Non-ED OBS Care Area Rationale for Observation: My rational for observation is as follows serial lab exams IV hydration medication adjustment physical therapy ensure safety continuing care discharge planning. (Tod Jennings MD)
[2018-01-10 06:20] LABS: ABSOLUTE BASOPHIL COUNT 0 /CUMM (0.0-0.2); ABSOLUTE EOSINOPHIL COUNT 0.1 /CUMM (0.0-0.7); ABSOLUTE GRANULOCYTE CT 14.7 /CUMM (1.4-6.5); ABSOLUTE MONOCYTE COUNT 1.2 /CUMM (0.10-0.60); BASOPHIL % 0.3 % (0.0-2.0); EOSINOPHIL % 0.6 % (0-5); GRANULOCYTE % 86.3 % (42.2-75.2); HEMATOCRIT 34.8 % (37-47); MEAN CORPUSCULAR HGB 26.6 PG (27.0-31.0); MEAN CORPUSCULAR HGB CONC 32.5 G/DL (33.0-37.0); MEAN CORPUSCULAR VOLUME 81.7 FL (81.0-99.0); MEAN PLATELET VOLUME 7.5 FL (7.4-10.4); PLATELET COUNT 645 /CUMM (130-400); RBC DISTRIBUTION WIDTH 16.6 % (11.5-14.5); RED BLOOD CELL CT 4.26 /CUMM (4.20-5.40)
--- NOTE | 2018-01-10 07:15 | CT SCAN REPORT ---
EXAMINATION: NONCONTRAST HEAD CT NONCONTRAST CERVICAL SPINE CT INDICATION INFORMATION: Fall, trauma COMPARISON: 01/09/2018 TECHNIQUE: Separate noncontrast CT examinations of the head and cervical spine were performed. Coronal head CT images and coronal and sagittal cervical spine images were created at the technologist workstation. DLP: 1008.93 mGy-cm FINDINGS: Head: There is no evidence of acute intracranial hemorrhage or territorial infarction. No abnormal mass-effect or midline shift is seen. Nevarez to white matter differentiation is well preserved. No extra-axial fluid collections are identified. The ventricles are normal in size. There is moderate periventricular white matter hypoattenuation consistent with chronic small vessel ischemic disease. Moderate volume loss is noted. The osseous structures and soft tissues are normal. The mastoid air cells and visualized portions of the paranasal sinuses are well-aerated. Cervical spine: There is anatomic alignment of the vertebral bodies and posterior elements. Vertebral body heights are maintained. There is mild disc space narrowing at C6-C7 with end plate osteophyte formation. Multilevel facet arthropathy is present. No evidence of acute fracture. No prevertebral soft tissue swelling. Visualized portions of the lung apices are unremarkable. The thyroid gland is unremarkable. IMPRESSION: 1. Head: No acute intracranial findings. Chronic small vessel ischemic disease and volume loss. 2. Cervical spine: No acute findings identified. Multilevel degenerative changes.
--- NOTE | 2018-01-10 07:26 | RADIOLOGY REPORT ---
EXAMINATION: XR SHOULDER, RIGHT XR HUMERUS, RIGHT CLINICAL INFORMATION: Fall. Swelling. Fracture. COMPARISON: 01/02/2018 TECHNIQUE: Three views of the right shoulder. AP and lateral views of the right humerus FINDINGS: Right shoulder: A spiral fracture of the mid to proximal right humeral diaphysis is again noted to be displaced with the distal fragment situated 2-3 shaft widths posterolateral to the proximal fragment. There is mild foreshortening. Alignment is similar to prior. There is a small intervening fragment between the dominant proximal and distal fragments. Surrounding soft tissues are swollen. 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 Humeral head is appropriately situated at the glenoid. Right humerus: As above, there is posterior lateral displacement of the distal fracture fragment at the spiral humeral diaphyseal fracture. Soft tissues are diffusely swollen. Bones are osteopenic. IMPRESSION: Displaced spiral fracture of the mid to proximal humeral shaft with similar alignment to prior.
--- NOTE | 2018-01-10 07:28 | CT SCAN REPORT ---
EXAM: NONCONTRAST CT OF THE CHEST; NONCONTRAST CT OF THE ABDOMEN AND PELVIS INDICATION: Fall, trauma, dyspnea COMPARISON: None TECHNIQUE: No IV contrast was utilized. Multidetector helical imaging was performed through the chest, abdomen, and pelvis. Coronal and sagittal reformatted images were created at the technologist workstation. DLP: 378.33 mGy-cm FINDINGS: Chest: Debris is present in the trachea. Assessment of the lung parenchyma is partially limited due to respiratory motion artifact. No focal consolidation bilaterally. Biapical scarring is noted. No pneumothorax or pleural effusion. There is a juxta fissural nodularity in the right upper lobe measuring approximately 1.4 x 0.6 cm on image 174/904. The visualized thyroid gland is unremarkable. There are subcentimeter mediastinal lymph nodes within the range of normal variation. There is moderate cardiomegaly without pericardial effusion. Coronary artery stent and calcifications are noted. There is atherosclerotic calcification along the aorta. No axillary lymphadenopathy is present. There are degenerative changes at the sternoclavicular joints bilaterally. There is a nonspecific sclerotic focus in the left humeral head. Call Or Contact Centre Coach image demonstrates a displaced proximal to mid right humeral diaphyseal fracture. Abdomen/Pelvis: The liver is homogeneous in attenuation without intrahepatic biliary ductal dilatation. Cholelithiasis is noted. The unenhanced spleen and pancreas appear unremarkable. The left adrenal gland is diffusely prominent, without discrete nodularity. The right adrenal gland is unremarkable. There is a 2.2 cm right mid renal cyst. No hydronephrosis bilaterally. There are a few scattered small calculi in the renal rekha bilaterally, which may be vascular. No obstructing ureteral calculus. Nonspecific bilateral perinephric stranding. The urinary bladder is unremarkable. The uterus and adnexa are unremarkable. Assessment for wall thickening in some segments of the colon is limited due to luminal collapse, though no significant pericolonic stranding is seen to strongly suggest a colitis. There is mild colonic diverticulosis. No evidence of bowel obstruction. Appendix is collapsed. No free fluid or free air is present. There is atherosclerotic calcification along the aorta and iliac arteries. No retroperitoneal or pelvic lymphadenopathy is seen. There is degenerative change in the left hip. There are scattered mild to moderate degenerative changes in the thoracolumbar spine. IMPRESSION: 1. No acute traumatic findings identified in the chest, abdomen, or pelvis. Call Or Contact Centre Coach image demonstrates a displaced proximal to mid right humeral diaphyseal fracture. 2. Juxta fissural nodularity in the right upper lobe measuring approximately 1.4 x 0.6 cm. This could reflect a confluence of lymph nodes, though in the absence of prior studies for comparison, follow-up chest CT in 3 months is advised. 3. Cardiomegaly. 4. Cholelithiasis.
--- NOTE | 2018-01-10 10:45 | History & Physical ---
Beni LEE,[facility] 01/10/18 1045: General Information and HPI MD Statement: I have seen and personally examined CORINA SANCHEZ and documented this H&P. The patient is a 82 year old F who presented with a patient stated chief complaint of [slow to respond]. 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 Patient presented yesterday to the ED for complaint of nausea vomiting 1 and diarrhea for couple of days, was given fluid and discharged back to [facility]. According to the [facility] patient continued to have progressive weakness and lethargy and was brought back here for evaluation. On presentation patient is alert, responds to verbal stimuli, most of the history obtained from her family 2 daughters and son-in-law. They reported dramatic decline in her overall clinical condition over the last week after her recent discharge from [facility] for right humeral fracture and syncopal attack. Denied any fever, chills, cough, chest pain, abdominal pain, further nausea or vomiting. Family thinks that "that might be the end" and would like to treat without any heroic measures including MRI brain. Allergies/Medications Allergies: Coded Allergies: No Known Allergies (01/02/18) Home Med list Atorvastatin Calcium (Lipitor) 40 MG TABLET 1 TAB PO DAILY CHOLESTEROL ( Reported) Calcium Carbonate (Calcium) 500 MG CALCIUM (1,250 MG) TABLET 1 TAB PO BID SUPPLEMENT (Reported) Carvedilol 6.25 MG TABLET 1 TAB PO BID HEART/BP (Reported) Cholecalciferol (Vitamin D3) (Vitamin D) 1,000 UNIT TABLET 1 TAB PO DAILY SUPPLEMENT (Reported) Omeprazole 20 MG CAPSULE.DR 1 CAP PO DAILY GI (Reported) Ondansetron HCl (Zofran) 4 MG TABLET 1 TAB PO Q8P PRN NAUSEA/VOMITING ( Reported) Prednisone 1 MG TABLET 9 MG PO DAILY STEROID (Reported) Sennosides/Docusate Sodium (Senna S Tablet) 8.6 MG-50 MG TABLET 1 TAB PO QHS GI (Reported) Sertraline HCl (Zoloft) 25 MG TABLET 1 TAB PO DAILY MENTAL HEALTH (Reported) Past History Travel History Traveled to [place] past 21 day No Medical History Neurological: CVA, AMS GIANT CELL ARTERITIS EENT: NONE Cardiovascular: AFIB, CAD, hypertension, STEMI Respiratory: NONE Gastrointestinal: NONE Hepatic: NONE Renal: NONE Musculoskeletal: NONE Psychiatric: NONE Endocrine: NONE Blood Disorders: NONE Cancer(s): 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 Denies: chills, fever. EENTM: Denies: blurred vision, visual changes. Cardiovascular: Denies: chest pain, palpitations. Respiratory: Denies: cough, short of breath. GI: Reports: diarrhea. Denies: abdominal pain, nausea, vomiting. Genitourinary: Denies: dysuria, hematuria. Musculoskeletal: Denies: back pain. Skin: Denies: rash. Exam & Diagnostic Data Last 24 Hrs of Vital Signs/I&O Vital Signs Date Time Temp Pulse Resp B/P B/P Pulse O2 O2 Flow FiO2 Mean Ox Delivery Rate 01/10 1230 97.8 104 20 170/110 97 Room Air Room Air 01/10 1153 Room Air Room Air 01/10 1020 98.9 90 16 162/84 97 Room Air 01/10 1000 98.9 95 16 160/90 98 Room Air 01/10 0918 112 182/94 01/10 0910 98.9 112 18 182/94 96 Room Air 01/10 0732 Room Air 01/10 0656 112 20 175/96 97 Room Air 01/10 0604 Room Air 01/10 0600 95.1 111 20 180/94 95 Room Air Intake & Output 01/10 1600 01/10 0800 01/10 0000 Intake Total 0 Output Total 250 Balance -250 Intake, Oral 0 Output, Urine 250 Patient 61.462 kg Weight Weight Bed scale Measurement Method Physical Exam General Appearance Alert, Severe Distress Skin No Rashes, ecmosis of left face Skin Temp/Moisture Exam: Warm/Dry HEENT Atraumatic, PERRLA, EOMI, Mucous Membr. 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 Family thinks that "that might be the end" and would like to treat without any heroic measures including MRI brain. Problem list #Progressive weakness and lethargy #Aspiration pneumonia versus pneumonitis #Diarrhea #Chronic atrial fibrillation not on any anticoagulation #Gaint artery vasculitis #CAD #Right humeral fracture status post splint Plan -Admit to general medical floor -Vitals every shift -Azithromycin for possible aspiration pneumonia -IV fluid D5 half normal saline -Continue home medication -DVT prophylaxis Alps and Lovenox -Code DNR/DNI As Ranked By This Provider Problem List: 1. Right humeral fracture 2. Pneumonitis Core Measures/Misc (06/02) Acute Coronary Syndrome ACS Diagnosis: No Congestive Heart Failure Congestive Heart Failure Diagnosis No Cerebrovascular Accident CVA/TIA Diagnosis: No VTE (View Protocol) VTE Risk Factors Age>40 No Mechanical VTE Prophylaxis d/t N/A MechProphylax Ordered No VTE Pharm Prophylaxis d/t NA PharmProphylax ordered Sepsis (View protocol) Sepsis Present: No Otoniel Webster MD 01/11/18 0711: Attending MD Review Statement Attending Statement Attending MD Statement: examined this patient, discuss w/resident/PA/PAYROLL CONSULTANT, agreed w/resident/PA/PAYROLL CONSULTANT, discussed with family, reviewed EMR data (avail), discussed with nursing, discussed with case mgmt, reviewed images, amended to note Attending Assessment/Plan: The patient is an 82 yo female who who presented in the ED as noted above. She was felt to have CVA as cause of symptoms. Shortly after being transported to medical floor she was noted to have a new left hemiparesis and CVA. After discussion with family will transfer immediately to Hospice service. Morphine and Ativan administered. The patient was discharged from acute care visit and admitted to Hospice.
[2018-01-10 12:30] VITALS: BP 170/110
--- NOTE | 2018-01-10 14:14 | Event Note ---
Event Note Event Note: I got a call from the the nurse for blood pressure of 170/110, went promptly for evaluation repeated blood pressure is 150/90. I noticed left facial droop, asked the family when that developed and they mentioned they started to notice the droop and left body weakness on the way from the ED to up the room. On exam patient had left hemiplegia and left facial droop. Patient was alert however not oriented. She responded well to verbal stimuli. My attending Dr. Davenport was made aware and he came immediately for evaluation. Discussed with the family the 2 daughters and son-in-law who have been to be orthopedic surgeon the option of getting CAT scan however they do not want to do anything either evacuation into case of hemorrhagic stroke or TPA in case of ischemic stroke. Family wants the patient to be comfortable and CODE STATUS was changed to comfort with hospice evaluation.
--- NOTE | 2018-01-10 17:52 | History & Physical ---
General Information and HPI MD Statement: I have seen and personally examined CORINA SANCHEZ and documented this H&P. The patient is a 82 year old F who presented with a patient stated chief complaint of []. Source of Information: family, old records Exam Limitations: unable to give history, confusion Allergies/Medications Allergies: Coded Allergies: No Known Allergies (01/02/18) Home Med list Atorvastatin Calcium (Lipitor) 40 MG TABLET 1 TAB PO DAILY CHOLESTEROL ( Reported) Calcium Carbonate (Calcium) 500 MG CALCIUM (1,250 MG) TABLET 1 TAB PO BID SUPPLEMENT (Reported) Carvedilol 6.25 MG TABLET 1 TAB PO BID HEART/BP (Reported) Cholecalciferol (Vitamin D3) (Vitamin D) 1,000 UNIT TABLET 1 TAB PO DAILY SUPPLEMENT (Reported) Omeprazole 20 MG CAPSULE.DR 1 CAP PO DAILY GI (Reported) Ondansetron HCl (Zofran) 4 MG TABLET 1 TAB PO Q8P PRN NAUSEA/VOMITING ( Reported) Prednisone 1 MG TABLET 9 MG PO DAILY STEROID (Reported) Sennosides/Docusate Sodium (Senna S Tablet) 8.6 MG-50 MG TABLET 1 TAB PO QHS GI (Reported) Sertraline HCl (Zoloft) 25 MG TABLET 1 TAB PO DAILY MENTAL HEALTH (Reported) Past History Travel History Traveled to [place] past 21 day No Medical History Blood Transfusion Hx: No Neurological: CVA, AMS GIANT CELL ARTERITIS EENT: NONE Cardiovascular: AFIB, CAD, hypertension, STEMI Respiratory: NONE Gastrointestinal: NONE Hepatic: NONE Renal: NONE Musculoskeletal: FX HUMERUS Psychiatric: NONE Endocrine: NONE Blood Disorders: NONE Cancer(s): 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 Alf Facility Services at Home: None Smoking Status: Former Smoker Core Measures/Misc (06/02) Cerebrovascular Accident CVA/TIA Diagnosis: No VTE (View Protocol) VTE Risk Factors Age>40 Sepsis (View protocol) Sepsis Present: No
--- NOTE | 2018-01-10 17:54 | Discharge Summary ---
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 Patient was admitted for lethargy, possible aspiration pneumonia versus pneumonitis, was started on azithromycin and anticoagulation for risk of infarction. Patient had change in neuro exam within few hours after admission, left hemiplegia and left face droop. Patient's family requested comfort care. Hospice evaluation was obtained and patient will be changed to hospice. Allergies: Coded Allergies: No Known Allergies (01/02/18) Disposition Summary Disposition Principal Diagnosis: Stroke Additional Diagnosis: Aspiration pneumonia (possible) Discharge Disposition: hospice - medical facilit Discharge Instructions General Discharge Information Code Status: Comfort Care Only Patient's Diet: regular Patient's Activity: as tolerated Follow-Up Instructions/Appts: Please follow up with your PCP after discharge Copies To: Otoniel Webster MD, MD Review Statement Documenting Attending: Otoniel Webster MD Other Findings: The patient was seen and as above she was discharged from acute admission and admitted to inpatient Hospice service here at [facility]. Comfort care to be delivered. Family present and in agreement.
--- NOTE | 2018-01-11 07:16 | Admission Certification ---
Admission Certification Certification Statement - As attending physician, I certify that at the time of - admission, based on clinical presentation, severity of - symptoms, need for further diagnostic testing and - therapeutic interventions, and risk of adverse outcomes - without in-hospital treatment, in my clinical assessment, - this patient requires an acute hospital stay for a minimum - of two nights or longer. I have also considered psychsocial - factors such as support system, advanced age, financial - issues, cognitive issues, and failed out-patient treatments, - past re-admission history, safety of patient, and lack of - compliance as applicable. Specific rationale supporting this admission is: The patient was initially admitted to acute care medical service with decreased mental status and probable CVA. Subsequently progressed and was later transferred to inpatient Hospice service.
== END 2018-01-10 15:22 | disposition hospice, home (50) | DRG 64 ==
LOC: ERH 05:55 → ERHI 08:21 → ERH 08:21 → ENRESERV 10:06 → ERHI 10:12 → EDBEDREQ 10:14 → ENTRNSPT 10:52 → EDTRNSPTSTS 11:05 → EDTRNSPT 11:05 → 2NB 11:18 → CMPTRNSPT 11:37 → 2NA 14:30
PROVIDERS: Pediatrics
DX: I63.9 Cerebral infarction, unspecified (principal); J69.0 Pneumonitis due to inhalation of food and vomit; G81.94 Hemiplegia, unspecified affecting left nondominant side; I48.91 Unspecified atrial fibrillation; M31.6 Other giant cell arteritis; R53.83 Other fatigue; I25.10 Atherosclerotic heart disease of native coronary artery without angina pectoris; R29.810 Facial weakness; Z66 Do not resuscitate; Z95.5 Presence of coronary angioplasty implant and graft; I25.2 Old myocardial infarction; Z51.5 Encounter for palliative care
CPT/HCPCS: 2NAP; 36592; 73030-RT; 73060-RT; 74176; 81001; 87040; 93005; 93010; 96361; 96374; 96375; J0131; J0456; J1650; J2060; J2405; J7040; J7042

== ENCOUNTER 2018-01-10 15:22 | Inpatient (IN) | payer OTHER ==
--- NOTE | 2018-01-10 16:44 | History & Physical ---
General Information and HPI Chief Complaint: 82 yo female presenting from [facility] ([facility]) with decreased responsiveness, lethargy, prior nausea/vomiting, weakness- developed left sided weakness just prior to being admitted to general medical floor (CVA). Source of Information: family, old records Exam Limitations: no limitations History of Present Illness: The patient is an 82 yo female with h/o CAD (s/p LAD PCI 02/2017), h/o afib (no anticoagulation- stopped), h/o bilateral cerebellar CVA's (10/03), s/p fall and right humeral fracture who presented in the ED with progressive lethargy and decreased responsiveness. Had been seen the day prior and sent back to [facility]. Brought back again with worsening of lethargy. In the ED the patient was moving all extremities, however upon arriving on floor noted left sided weakness that was new. The family had expressed desire for her to be DNR/DNI and did not want any testing/treatments that would be uncomfortable. The family was present and aware of condition and elected to transfer to Hospice Care. She had nausea/ vomiting the day prior to admission. 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 Psychosocial History: Was in assisted living ([facility]) and moved to [facility] for [facility]. Functional Ability: Limited Review of Systems Review of Systems: Patient is lethargic and unable to respond to any questions. Review of Systems Constitutional: Reports: malaise, weakness. EENTM: Denies: no symptoms. Cardiovascular: Denies: no symptoms. Respiratory: Reports: cough. GI: Reports: bloating, vomiting. Genitourinary: Denies: no symptoms. Skin: Denies: no symptoms. Hematologic/Endocrine: Denies: no symptoms. Immunologic/Allergic: Denies: no symptoms. Exam & Diagnostic Data Last 24 Hrs of Vital Signs/I&O Intake & Output 01/11 0800 01/11 0000 01/10 1600 Intake Total 40 Output Total Balance 40 Intake, IV 40 Physical Exam General Appearance BARELY RESPONSIVE TO TACTILE STIMULATION Skin No Rashes, No Breakdown, No Significant Lesion HEENT Atraumatic, PERRLA, DRY MUCOSA Neck Supple, No JVD, No thryomegaly, +2 Carotid Pulse wo Bruit, No LAD Cardiovascular Normal S1, Normal S2, No Murmurs (TACHY, IRREG) Lungs Clear to Auscultation, Normal Air Movement Abdomen Normal Bowel Sounds, Soft, No Tenderness, No Hepatospenomegaly, No Masses Neurological Normal Gait (DIFFICULT TO ASSESS) Extremities No Clubbing, No Cyanosis, Normal Pulses, ASYMMETRIC LEG SWELLING ABOVE Vascular Normal Pulses, Pulses Symmetrical Last 24 Hrs of Labs/Ashish: SEE ED CHART Assessment/Plan Assessment: Impression/Plan: #Status Post Acute CVA- with increasing lethargy and confusion, new left sided weakness the morning. Overall prognosis is poor due to prior pre-morbid conditions. Plan: Admit to general medicine and subsequent Hospice care as per protocol. Wean off of oxygen and mobilize. Will do full Hospice care. #Hospice Care- patient was uncomfortable and responded well to low doses of Morphine. Plan: Continue Morphine, Ativan, Robinal.
--- NOTE | 2018-01-13 19:22 | Discharge Summary ---
Visit Information Visit Dates Admission Date: 01/10/18 Discharge Date: 01/11/18 Hospital Course Course Attending Physician: Otoniel Webster MD Primary Care Physician: Dr. 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 [place] to have probable recurrent posterior circulation CVA. Was initially admitted to medical service for IV hydration, etc. Noted new onset of left hemiparesis upon arriving on floor and felt to have had interval CVA. Family elected to go with Hospice Care. Hospice consult was called and she was transferred to Hospice Service. IV morphine, ativan, and glycopyrolate were administered as per protocol. The patient early in the morning on . Complications: Patient on Hospice service. Allergies: Coded Allergies: No Known Allergies (01/02/18) Significant Procedures: CT of Head/Neck done during medical part of admission (prior to transfer to Hospice) IMPRESSION: 1. Head: No acute intracranial findings. Chronic small vessel ischemic disease and volume loss. 2. Cervical spine: No acute findings identified. Multilevel degenerative changes. Pertinent Lab Results: None Disposition Summary Disposition Principal Diagnosis: #Acute CVA - both posterior circulation and right hemispheric CVA with left hemiparesis Additional Diagnosis: #Aspiration Pneumonia #CAD #Giant Cell Arteritis Discharge Disposition: Patient . Discharge Instructions General Discharge Information Code Status: Hospice Patient's Diet: Patient - no diet. Patient's Activity: Patient . Follow-Up Instructions/Appts: Patient . Copies To: Mariajose LEE,Hero Buck MD Review Statement Documenting Attending: Otoniel Webster MD
== END 2018-01-11 02:45 | disposition expired | DRG 66 ==
LOC: 2NA 15:22
DX: I63.9 Cerebral infarction, unspecified (principal); Z51.5 Encounter for palliative care; I48.2 Chronic atrial fibrillation; M31.6 Other giant cell arteritis; I10 Essential (primary) hypertension; I25.2 Old myocardial infarction; I25.10 Atherosclerotic heart disease of native coronary artery without angina pectoris; Z79.52 Long term (current) use of systemic steroids; R19.7 Diarrhea, unspecified
CPT/HCPCS: J2270